=== PATIENT | female | born 1935 | race Caucasian/White ===

== ENCOUNTER → 2016-04-28 | Outpatient (CLI) | payer MEDICARE ==
--- NOTE | 2016-04-28 14:43 | US ---
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 Patient has stents bilaterally EXAM MEASUREMENTS: RIGHT: Peak Systolic Velocity (PSV) cm/sec ----- Right CCA: 93.0 ----- Right ICA: 164.7* ----- Right ECA: 419.4 ICA/CCA ratio: 1.8 RIGHT: End Diastole cm/sec ----- Right CCA: 19.3 ----- Right ICA: 27.6 ----- Right ECA: 72.3 LEFT: Peak Systolic Velocity (PSV) cm/sec ----- Left CCA: 79.6 ----- Left ICA: 111.8 ----- Left ECA: no flow detected ICA/CCA ratio: 1.4 LEFT: End Diastole cm/sec ----- Left CCA: 28.0 ----- Left ICA: 31.0 ----- Left ECA: no flow detected VERTEBRALS (direction of flow): Right Vertebral: Antegrade Left Vertebral: Antegrade IMPRESSION: Patient has bilateral stents in carotid arteries. Elevated velocities in right ICA and ECA. No flow detected left ECA. Criteria for Assigning % of Stenosis / Diameter reduction (Estimation based on the indirect measurements of the internal carotid artery velocities (ICA PSV). 1. Normal (no stenosis)=ICA PSV < 125 cm/s: ratio < 2.0: ICA EDV<40 cm/s. 2. Less than 50% stenosis=ICA PSV < 125 cm/s: ratio < 2.0: ICA EDV<40 cm/s. 3. 50 to 69% stenosis=ICA PSV of 125 to 230 cm/s: ration 2.0 ? 4.0: ICA EDV 40-100 cm/s. 4. Greater than 70% stenosis to near occlusion= ICA PSV > 230 cm/s: ratio > 4.0: ICA EDV > 100 cm/s. 5. Near occlusion= ICA PSV velocities may be low or undetectable: variable ratio and ICA EDV. 6. Total occlusion=unable to detect flow.
== END | disposition home or self-care (01) ==
LOC: RADUSWWP 14:00
PROVIDERS: ATTEND Family Medicine
DX: I65.23 Occlusion and stenosis of bilateral carotid arteries (principal); Z95.828 Presence of other vascular implants and grafts
CPT/HCPCS: 93880

== ENCOUNTER → 2016-06-14 | Outpatient (CLI) | payer MEDICARE ==
--- NOTE | 2016-06-14 12:34 | CT ---
EXAMINATION TYPE: CT sinus wo con DATE OF EXAM: 06/14/2016 12:27 PM COMPARISON: NONE HISTORY: Sinusitis CT DLP: 564.[address] of the paranasal sinuses was performed in the axial and coronal planes. Bone and soft tissue settings are submitted. The paranasal sinuses demonstrate normal aeration and development. Mild mucosal thickening of the ethmoid air cells, maxillary sinuses and sphenoid sinus. No air-fluid levels detected. The osteal meatal units are patent bilaterally. The nasal septum is mildly deviated right to left. No bony destructive changes are seen within the field of view. IMPRESSION: Changes of chronic sinusitis.
== END | disposition home or self-care (01) ==
LOC: RADCTMAIN 12:06
PROVIDERS: ATTEND Family Medicine
DX: J01.11 Acute recurrent frontal sinusitis (principal)
CPT/HCPCS: 70486

== ENCOUNTER → 2017-12-05 | Outpatient (CLI) | payer MEDICARE ==
--- NOTE | 2017-12-05 18:05 | US ---
EXAMINATION TYPE: US carotid duplex BILAT DATE OF EXAM: 12/05/2017 COMPARISON: NONE CLINICAL HISTORY: I65.2 Occlusion and stenosis of bilateral carotid. Stenosis and occlusion of left E CA has stents in. EXAM MEASUREMENTS: RIGHT: Peak Systolic Velocity (PSV) cm/sec ----- Right CCA: 90 ----- Right ICA: 208 ----- Right ECA: 423.8 ICA/CCA ratio: 2.3 RIGHT: End Diastole cm/sec ----- Right CCA: 21.7 ----- Right ICA: 30.4 ----- Right ECA: 66.8 LEFT: Peak Systolic Velocity (PSV) cm/sec ----- Left CCA: 101.6 ----- Left ICA: 129.9 ----- Left ECA: Occluded ICA/CCA ratio: 1.3 LEFT: End Diastole cm/sec ----- Left CCA: 30.5 ----- Left ICA: 36.9 ----- Left ECA: Occluded VERTEBRALS (direction of flow): Right Vertebral: Antegrade Left Vertebral: Antegrade Rhythm: Normal Elevated velocities bilaterally. Left ECA occluded. IMPRESSION: There is occlusion of the left external carotid artery. There is elevated velocities in the internal carotid arteries bilaterally that suggests approximately 70% stenosis. There is antegrad e flow in the vertebral arteries. Criteria for Assigning % of Stenosis / Diameter reduction (Estimation based on the indirect measurements of the internal carotid artery velocities (ICA PSV). 1. Normal (no stenosis)=ICA PSV < 125 cm/s: ratio < 2.0: ICA EDV<40 cm/s. 2. Less than 50% stenosis=ICA PSV < 125 cm/s: ratio < 2.0: ICA EDV<40 cm/s. 3. 50 to 69% stenosis=ICA PSV of 125 to 230 cm/s: ration 2.0 ? 4.0: ICA EDV 40-100 cm/s. 4. Greater than 70% stenosis to near occlusion= ICA PSV > 230 cm/s: ratio > 4.0: ICA EDV > 100 cm/s. 5. Near occlusion= ICA PSV velocities may be low or undetectable: variable ratio and ICA EDV. 6. Total occlusion=unable to detect flow.
--- NOTE | 2017-12-05 22:31 | CT ---
EXAMINATION TYPE: CT chest w con DATE OF EXAM: 12/05/2017 COMPARISON: Chest radiograph 09/06/2012 HISTORY: 82-year-old female Shortness of breath x3 months. TECHNIQUE: Contiguous axial scanning of the chest after the administration of 100ml mL of Isovue 370. Coronal/sagittal reconstructions performed. CT DLP: 346mGycm. Automatic exposure control utilized for a dose reduction. FINDINGS: A tracheostomy stoma is noted. Heart upper limits of normal in size without pericardial effusion. Coronary vessel calcifications are present in remarkable for coronary artery disease. Aorta normal caliber with moderate atherosclerotic arch calcifications and conventional arch vessel b ranching anatomy. Prominent but nonenlarged right paratracheal lymph nodes measure up to 8 mm. AP window lymph nodes are also prominent and suspicious measuring up to 1.1 cm. Additional adjacent 7 mm AP window lymph nodes. Subcarinal lymph node is enlarged and suspicious at 2.3 cm. Additional numerous calcified mediastinal and left hilar lymph nodes compatible with prior granulomat ous disease. Large heterogeneously enhancing posterior and medial left lower lobe mass centered primarily in the s uperior segment but also extending to the upper portion of the basilar segments. This measures at [address] [facility] 5.5 cm wide by 9.1 cm AP by 8.1 cm craniocaudal. Some opacity extending peripherally to the pleura l surface probably represents postobstructive changes and the superior segment left lower lobe bronch us and many of the proximal portion of the segmental bronchi course through this lesion. Septal thickening in the basilar left lower lobe. Calcified granuloma peripheral left midlung. Visualized upper abdomen shows calcified granulomas in the spleen and a 2.6 cm cyst upper pole left k [place]. Bones: Endplate spondylosis mid to lower thoracic spine. No osseous destructive process. IMPRESSION: 1. Large left infrahilar mass centered within the superior segment left lower lobe encasing the left lower lobar and segmental bronchi. It is estimated to measure up to 9.1 cm and causes postobstructive atelectasis or pneumonitis peripherally in the left lower lobe and some vascular congestion with sep teo thickening at the base. Consider PET/CT and endobronchial sampling. 2. A 2.3 cm subcarinal lymph node is suspicious for metastatic disease. 1.1 AP window and adjacent 7 mm AP window lymph nodes are equivocal but also somewhat suspicious. 3. Prior granulomatous disease.
== END | disposition home or self-care (01) ==
LOC: RADUSMAIN 16:53
PROVIDERS: ATTEND Family Medicine
DX: I65.23 Occlusion and stenosis of bilateral carotid arteries (principal); R91.8 Other nonspecific abnormal finding of lung field; R09.89 Other specified symptoms and signs involving the circulatory and respiratory systems
CPT/HCPCS: 82565; 84520; 93880; 71260; 36415; Q9967

== ENCOUNTER → 2017-12-22 | Outpatient (CLI) | payer MEDICARE ==
--- NOTE | 2017-12-24 21:48 | PE ---
EXAMINATION TYPE: PET CT fusion skull to thigh DATE OF EXAM: 12/22/2017 CLINICAL HISTORY: 82-year-old female initial staging left lung cancer. Patient with history of prior radiation therapy to the neck 28 years ago. TECHNIQUE: Following the intravenous administration of 13.0 mCi of F-18 FDG, whole body images are performed from the skull base to the midthigh. Images are reviewed on the computer in the coronal, a xial, and sagittal planes. Reconstructed rotating images are created on independent workstation and reviewed on the computer. A localization and attenuation correction CT is performed in conjunction with the PET scan. Glucose level: 89 mg/dL CTDI: 4.56 mGy DLP: 406.23 mGy-cm COMPARISON: CT chest 12/05/2017 FINDINGS: PET: Tiny 3 mm left supraclavicular lymph node shows trace uptake, max SUV 1.8. An 8 mm right supraclavicu lar lymph node shows borderline moderate uptake, max SUV 3.1. Small superior mediastinal lymph nodes measuring up to 6 mm also show borderline moderate FDG uptake, maximum SUV 3.1. Larger right paratracheal lymph node measures 9 mm, Prevascular space and AP window lymph nodes measure up to 7 mm. Right tracheobronchial angle lymph node measures 1.1 cm. Subcarinal lymph node measures 2.0 cm. Small lymph node along the apical esophageal recess measures 8 mm. These have variable moderate to in tense uptake, max SUV ranging from 3.8 -12.2 and are all suspicious. Redemonstrated large left infrahilar and superior segment left lower lobe hypermetabolic mass measuri ng up to 8.9 cm on axial series and extending to the posterior pleural margin and encasing left lower lobe bronchi. Max SUV 7.6. Some areas of focal opacity extending peripherally in the left lower lobe show only mild or moderate uptake and are suggestive of areas of pneumonitis. There is a lipoma involving the posterior right deltoid musculature measuring up to 4.5 cm. No internal corrosion specialist al soft tissue nodularity or hypermetabolism. Average liver SUV 1.9. Ametabolic 2.2 cm cyst upper pole left kidney. Physiologic FDG uptake within the abdomen and pelvis. ATTENUATION CORRECTION CT: Patient seems to have had prior neck dissection. Stents within the bilateral carotid arteries. Prior tracheostomy. Heart borderline enlarged with trace pericardial fluid. Coronary vessel calcifications are present in remarkable for coronary artery disease. Prior granulomatous disease with calcified mediastinal lymph nodes. Calcified pulmonary nodule left mid lung and in the right apex. Ectatic aorta at the thoracoa bdominal junction and 2.8 cm. The adrenal glands are clear. Calcified granulomas in the spleen. Ectatic infrarenal abdominal aorta 2.6 cm. No dilated small bowel, free fluid, or free air. Left hemicolonic diverticulosis, greatest in the ethmoid:. No pericolonic inflammatory change. Moderate circumferential bladder wall thickening. Status post hysterectomy. No abnormal fluid collect ion in the pelvis or pelvic lymphadenopathy. Bones: Ametabolic bone island left superior pubic ramus. Degenerative changes of the hips. Degenerati ve changes mid to lower lumbar spine and endplate spondylosis midthoracic spine. No osseous destructi ve process. IMPRESSION: 1. Large 9.0 cm hypermetabolic left infrahilar/superior segment left lower lobe neoplasm encasing lef t lower lobe bronchi and causing postobstructive pneumonitis similar to the 12/05/2017 CT. 2. Metastatic disease including AP window, subcarinal, azygoesophageal recess, right paratracheal, bear perior mediastinal, right supraclavicular (8 mm) and suspected early left supraclavicular (3 mm) hype rmetabolic lymphadenopathy.
== END | disposition home or self-care (01) ==
LOC: RADPETMAIN 12:16
PROVIDERS: ATTEND Internal Medicine Hematology & Oncology
DX: C34.32 Malignant neoplasm of lower lobe, left bronchus or lung (principal); J18.9 Pneumonia, unspecified organism
CPT/HCPCS: 78815; A9552

== ENCOUNTER 2017-12-28 07:46 | Day surgery (SDC) | payer MEDICARE ==
[2017-12-28] MEDS ORDERED: ALPRAZolam 0.25 MG TAB PO STA (08:49)
[2017-12-28 09:04] VITALS: TEMP 98.3
[2017-12-28 09:29] VITALS: RESP 18
[2017-12-28 10:08] VITALS: BP 154/76; PULSE 74
--- NOTE | 2017-12-28 13:05 | US ---
EXAMINATION TYPE: US biopsy lymph node, US fine needle aspiration DATE OF EXAM: 12/28/2017 HISTORY: Supraclavicular mass. FINDINGS: Maximal barrier technique was utilized. The skin overlying a suitable path to the patient' s mass was localized with ultrasound and the overlying skin prepped and draped. Ultrasound was utili zed with sterile technique. Lidocaine was used for local anesthesia. A skin fahad was made with a sc alpel. An 20-gauge needle was advanced under direct ultrasound guidance and core specimen obtained o f the mass. Specimen submitted to Pathology. Aspiration also performed with 25-gauge needle under u ltrasound guidance. Second 20-gauge core specimen was then obtained. Following the procedure, hemosta sis achieved and the patient is discharged in stable condition without complication. IMPRESSION:STATUS POST ULTRASOUND GUIDED CORE BIOPSY AND FINE-NEEDLE ASPIRATION OF right supraclavicu lar MASS, PATHOLOGY IS PENDING. THIS PROCEDURE IS PERFORMED BY THE UNDERSIGNED.
== END 2017-12-28 10:05 | disposition home or self-care (01) ==
LOC: RADPROMAIN 07:46
PROVIDERS: ATTEND Internal Medicine
DX: R59.1 Generalized enlarged lymph nodes (principal); C34.90 Malignant neoplasm of unspecified part of unspecified bronchus or lung
CPT/HCPCS: 10022; 38505; 76942; 88173; 88305; 88341; 88342

== ENCOUNTER 2018-03-31 12:47 | Inpatient (IN) | payer MEDICARE ==
[2018-03-31] MEDS ORDERED: methylPREDNISolone SOD SUCCI 125 MG/2 ML VIAL IV STA (13:01)
[2018-03-31] MEDS ORDERED: ALBUTEROL NEBULIZED 2.5 MG/3 ML INHALATION STA (13:01)
[2018-03-31] MEDS ORDERED: SODIUM CHLORIDE 0.9% 500 ML 500 ML IV STA (13:01)
[2018-03-31] MEDS ORDERED: IPRATROPIUM 0.5 MG/2.5 ML NEBU INHALATION STA (13:01)
--- NOTE | 2018-03-31 13:08 | ED ---
General Adult HPI - General Chief complaint: Chest Pain Stated complaint: SOB Time Seen by Provider: 03/31/18 12:50 Source: patient, RN notes reviewed Mode of arrival: EMS Limitations: physical limitation - History of Present Illness Initial comments: 82-year-old female history of laryngeal cancer remotely with stoma, history of COPD, history of recurrent lung cancer on chemotherapy presents for evaluation of dyspnea. Patient transported by EMS, noted hypoxia in the high 80s. Patient 's chief complaint is right-sided rib pain,history of fall but pain did not begin immediately after the fall. She has left-sided lung cancer currently under treatment. She does report subjective fever and chills. She does report increasing cough and dyspnea. No abdominal pain nausea vomiting. - Related Data Home Medications Medication Instructions Recorded Confirmed Bisoprol/Hydrochlorothiazide 1 tab PO DAILY 12/25/17 03/31/18 [Bisoprolol-Hctz 10-6.25 mg Tab] Lovastatin [Mevacor] 20 tab PO DAILY 12/25/17 03/31/18 Montelukast [Singulair] 10 mg PO DAILY 12/25/17 03/31/18 Omeprazole 20 mg PO DAILY 12/25/17 03/31/18 Albuterol Inhaler [Ventolin Hfa 1 - 2 puff INHALATION RT-Q6H PRN 03/31/18 Inhaler] Ascorbic Acid [Vitamin C] 1,000 mg PO DAILY 03/31/18 03/31/18 Calcium 2,000 mg PO DAILY 03/31/18 03/31/18 Cholecalciferol [Vitamin D3] 5,000 unit PO DAILY 03/31/18 03/31/18 Hfb Nasal [place] 1 spray DAILY 03/31/18 03/31/18 Melatonin 10 mg PO HS 03/31/18 03/31/18 Multivitamins, Thera [Multivitamin 1 tab PO DAILY 03/31/18 03/31/18 (formulary)] amLODIPine [Norvasc] 5 mg PO DAILY 03/31/18 03/31/18 Allergies Allergy/AdvReac Type Severity Reaction Status Date / Time penicillin G Allergy Rash/Hives Verified 03/31/18 13:12 Sulfa (Sulfonamide Allergy Rash/Hives Verified 03/31/18 13:12 Antibiotics) Review of Systems ROS Statement: Those systems with pertinent positive or pertinent negative responses have been documented in the HPI. ROS Other: All systems not noted in ROS Statement are negative. Past Medical History Past Medical History: Cancer, Hypertension, Vascular Disorder Additional Past Medical History / Comment(s): total -laryngectomy approx 1989. neck stoma History of Any Multi-Drug Resistant Organisms: None Reported Past Surgical History: Hysterectomy Additional Past Surgical History / Comment(s): total -laryngectomy approx 1989. carotid stents bilaterally Past Anesthesia/Blood Transfusion Reactions: No Reported Reaction Past Psychological History: No Psychological Hx Reported Smoking Status: Former smoker Past Alcohol Use History: None Reported Past Drug Use History: None Reported General Exam Limitations: physical limitation General appearance: alert, in no apparent distress Head exam: Present: atraumatic, normocephalic Eye exam: Present: normal appearance, PERRL, EOMI ENT exam: Present: other (tracheal stoma) Neck exam: Present: normal inspection. Absent: tenderness, meningismus Respiratory exam: Present: respiratory distress, wheezes, rhonchi, chest wall tenderness (rt lower) Cardiovascular Exam: Present: normal rhythm, tachycardia GI/Abdominal exam: Present: soft. Absent: distended, tenderness, guarding Extremities exam: Present: normal capillary refill. Absent: pedal edema, calf tenderness Neurological exam: Present: alert, oriented X3, CN II-XII intact. Absent: motor sensory deficit Psychiatric exam: Present: normal affect, normal mood Skin exam: Present: warm, dry, intact. Absent: cyanosis, diaphoretic Course Vital Signs 03/31/18 03/31/18 03/31/18 12:55 14:11 14:18 Temperature 100.1 F H 100.8 F H Pulse Rate 106 H 105 H Respiratory 22 26 H Rate Blood Pressure 146/67 136/77 O2 Sat by Pulse 94 L 90 L 93 L Oximetry 03/31/18 15:59 Temperature 100.4 F H Pulse Rate 98 Respiratory 25 H Rate Blood Pressure 136/77 O2 Sat by Pulse 92 L Oximetry EKG Findings - EKG Comments: EKG Findings:: EKG: Sinus tachycardia with PVC, rate of 114, CA interval 136, castration 80, QTC 419, no ST segment elevation, poor baseline secondary to artifact Medical Decision Making - Medical Decision Making 82-year-old female presenting with fever, cough, dyspnea, patient has history of COPD and recurrent lung cancer. She does complain of some pleuritic right- sided chest pain. Workup was initiated emergency department. Chest x-ray shows bilateral basilar pneumonia. She has a normal white blood cell count, stable hemoglobin, normal x-rays, troponin and BNP are negative. D-dimer significantly elevated at 28. She started on antibiotics for pneumonia, awaiting CT results. CT is obtained in the emergency department which is significant for PE with saddle embolism. She is a initiated on heparin. VS remain stable with some hypoxia without supplemental oxygen. Heart rate and blood pressure stable. Case is discussed with Dr. Valle, pulmonary owner , patient will be admitted to ICU, no need for transfer at this time, This is a large embolus, there is no signs of heart strain, negative troponin. CT reviewed with the radiologist, no signs of right heart strain, normal right ventricle, and intraventricular septum. Case discussed with the medic physician. Patient with multifactorial dyspnea, large saddle pulmonary embolism. Patient will be admitted to the ICU on heparin, started on antibiotics as well as steroids and bronchodilators. - Lab Data Result diagrams: 03/31/18 14:00 03/31/18 14:00 Lab Results 03/31/18 03/31/18 03/31/18 Range/Units 14:00 14:00 14:00 WBC 9.2 (3.8-10.6) k/uL RBC 4.33 (3.80-5.40) m/uL Hgb 12.0 (11.4-16.0) gm/dL Hct 37.4 (34.0-46.0) % MCV 86.5 (80.0-100.0) fL MCH 27.7 (25.0-35.0) pg MCHC 32.0 (31.0-37.0) g/dL RDW 19.1 H (11.5-15.5) % Plt Count 215 (150-450) k/uL Neutrophils % 81 % Lymphocytes % 13 % Monocytes % 5 % Eosinophils % 1 % Basophils % 0 % Neutrophils # 7.4 (1.3-7.7) k/uL Lymphocytes # 1.1 (1.0-4.8) k/uL Monocytes # 0.5 (0-1.0) k/uL Eosinophils # 0.1 (0-0.7) k/uL Basophils # 0.0 (0-0.2) k/uL Hypochromasia Slight Anisocytosis Slight PT (9.0-12.0) sec INR (<1.2) APTT (22.0-30.0) sec D-Dimer (<0.60) mg/L FEU Sodium 136 L (137-145) mmol/L Potassium 3.8 (3.5-5.1) mmol/L Chloride 98 (98-107) mmol/L Carbon Dioxide 32 H (22-30) mmol/L Anion Gap 6 mmol/L BUN 18 H (7-17) mg/dL Creatinine 0.69 (0.52-1.04) mg/dL Est GFR (CKD-EPI)AfAm >90 (>60 ml/min/1.73 sqM) Est GFR (CKD-EPI)NonAf 82 (>60 ml/min/1.73 sqM) Glucose 166 H (74-99) mg/dL Plasma Lactic Acid Nick (0.7-2.0) mmol/L Calcium 9.2 (8.4-10.2) mg/dL Magnesium 1.5 L (1.6-2.3) mg/dL Total Bilirubin 0.5 (0.2-1.3) mg/dL AST 21 (14-36) U/L ALT 34 (9-52) U/L Alkaline Phosphatase 94 (38-126) U/L Total Creatine Kinase <20 L (30-135) U/L CK-MB (CK-2) <0.2 (0.0-2.4) ng/mL CK-MB (CK-2) Rel Index Troponin I <0.012 (0.000-0.034) ng/mL NT-Pro-B Natriuret Pep pg/mL Total Protein 5.9 L (6.3-8.2) g/dL Albumin 3.1 L (3.5-5.0) g/dL Influenza Type A RNA (Not Detectd) Influenza Type B (PCR) (Not Detectd) 03/31/18 03/31/18 03/31/18 Range/Units 14:00 14:00 14:00 WBC (3.8-10.6) k/uL RBC (3.80-5.40) m/uL Hgb (11.4-16.0) gm/dL Hct (34.0-46.0) % MCV (80.0-100.0) fL MCH (25.0-35.0) pg MCHC (31.0-37.0) g/dL RDW (11.5-15.5) % Plt Count (150-450) k/uL Neutrophils % % Lymphocytes % % Monocytes % % Eosinophils % % Basophils % % Neutrophils # (1.3-7.7) k/uL Lymphocytes # (1.0-4.8) k/uL Monocytes # (0-1.0) k/uL Eosinophils # (0-0.7) k/uL Basophils # (0-0.2) k/uL Hypochromasia Anisocytosis PT 10.7 (9.0-12.0) sec INR 1.0 (<1.2) APTT 20.9 L (22.0-30.0) sec D-Dimer 28.98 H (<0.60) mg/L FEU Sodium (137-145) mmol/L Potassium (3.5-5.1) mmol/L Chloride (98-107) mmol/L Carbon Dioxide (22-30) mmol/L Anion Gap mmol/L BUN (7-17) mg/dL Creatinine (0.52-1.04) mg/dL Est GFR (CKD-EPI)AfAm (>60 ml/min/1.73 sqM) Est GFR (CKD-EPI)NonAf (>60 ml/min/1.73 sqM) Glucose (74-99) mg/dL Plasma Lactic Acid Nick (0.7-2.0) mmol/L Calcium (8.4-10.2) mg/dL Magnesium (1.6-2.3) mg/dL Total Bilirubin (0.2-1.3) mg/dL AST (14-36) U/L ALT (9-52) U/L Alkaline Phosphatase (38-126) U/L Total Creatine Kinase (30-135) U/L CK-MB (CK-2) (0.0-2.4) ng/mL CK-MB (CK-2) Rel Index Troponin I (0.000-0.034) ng/mL NT-Pro-B Natriuret Pep 318 pg/mL Total Protein (6.3-8.2) g/dL Albumin (3.5-5.0) g/dL Influenza Type A RNA Not Detected (Not Detectd) Influenza Type B (PCR) Not Detected (Not Detectd) 03/31/18 Range/Units 14:00 WBC (3.8-10.6) k/uL RBC (3.80-5.40) m/uL Hgb (11.4-16.0) gm/dL Hct (34.0-46.0) % MCV (80.0-100.0) fL MCH (25.0-35.0) pg MCHC (31.0-37.0) g/dL RDW (11.5-15.5) % Plt Count (150-450) k/uL Neutrophils % % Lymphocytes % % Monocytes % % Eosinophils % % Basophils % % Neutrophils # (1.3-7.7) k/uL Lymphocytes # (1.0-4.8) k/uL Monocytes # (0-1.0) k/uL Eosinophils # (0-0.7) k/uL Basophils # (0-0.2) k/uL Hypochromasia Anisocytosis PT (9.0-12.0) sec INR (<1.2) APTT (22.0-30.0) sec D-Dimer (<0.60) mg/L FEU Sodium (137-145) mmol/L Potassium (3.5-5.1) mmol/L Chloride (98-107) mmol/L Carbon Dioxide (22-30) mmol/L Anion Gap mmol/L BUN (7-17) mg/dL Creatinine (0.52-1.04) mg/dL Est GFR (CKD-EPI)AfAm (>60 ml/min/1.73 sqM) Est GFR (CKD-EPI)NonAf (>60 ml/min/1.73 sqM) Glucose (74-99) mg/dL Plasma Lactic Acid Nick 1.9 (0.7-2.0) mmol/L Calcium (8.4-10.2) mg/dL Magnesium (1.6-2.3) mg/dL Total Bilirubin (0.2-1.3) mg/dL AST (14-36) U/L ALT (9-52) U/L Alkaline Phosphatase (38-126) U/L Total Creatine Kinase (30-135) U/L CK-MB (CK-2) (0.0-2.4) ng/mL CK-MB (CK-2) Rel Index Troponin I (0.000-0.034) ng/mL NT-Pro-B Natriuret Pep pg/mL Total Protein (6.3-8.2) g/dL Albumin (3.5-5.0) g/dL Influenza Type A RNA (Not Detectd) Influenza Type B (PCR) (Not Detectd) Critical Care Time Critical Care Time: Yes Total Critical Care Time: 35 Disposition Clinical Impression: Saddle embolus of pulmonary artery, COPD (chronic obstructive pulmonary disease ), Pneumonia Disposition: ADMITTED IP TO THIS [facility] Condition: Serious Is patient prescribed a controlled substance at d/c from ED?: No Referrals: Kamari Bailey MD [Primary Care Provider] - 1-2 days Decision to Admit Reason: Admit from EC Decision Date: 03/31/18 Decision Time: 17:17
[2018-03-31] MEDS ORDERED: ACETAMINOPHEN TAB 500 MG TAB PO STA (14:18)
[2018-03-31 14:40] LABS: Anisocytosis Slight; Basophils % (A) 0 %; Eosinophils # (A) 0.1 k/uL (0-0.7); Eosinophils % (A) 1 %; HCT 37.4 % (34.0-46.0); Hypochromasia Slight; Lymphocytes # (A) 1.1 k/uL (1.0-4.8); Lymphocytes % (A) 13 %; MCH 27.7 pg (25.0-35.0); MCV 86.5 fL (80.0-100.0); Monocytes # (A) 0.5 k/uL (0-1.0); Monocytes % (A) 5 %; Neutrophils # (A) 7.4 k/uL (1.3-7.7); Neutrophils % (A) 81 %; Platelet Count 215 k/uL (150-450); RBC 4.33 m/uL (3.80-5.40); RDW 19.1 % (11.5-15.5); WBC 9.2 k/uL (3.8-10.6)
[2018-03-31 14:50] LABS: ALT 34 U/L (9-52); AST 21 U/L (14-36); Albumin 3.1 g/dL (3.5-5.0); Alkaline Phosphatase 94 U/L (38-126); Anion Gap 6 mmol/L; Blood Urea Nitrogen 18 mg/dL (7-17); Calcium 9.2 mg/dL (8.4-10.2); Carbon Dioxide 32 mmol/L (22-30); Chloride 98 mmol/L (98-107); Glucose 166 mg/dL (74-99); Magnesium 1.5 mg/dL (1.6-2.3); Potassium 3.8 mmol/L (3.5-5.1); Sodium 136 mmol/L (137-145); Total Bilirubin 0.5 mg/dL (0.2-1.3); Total Protein 5.9 g/dL (6.3-8.2)
[2018-03-31 14:57] LABS: Creatine Kinase <20 U/L (30-135)
[2018-03-31] MEDS ORDERED: MAGNESIUM SULFATE-D5W PMX 1 GM in DEXTROSE/WATER 1 100ML.BAG IVPB ONE (14:57)
[2018-03-31 15:05] LABS: Prothrombin Time 10.7 sec (9.0-12.0)
--- NOTE | 2018-03-31 15:07 | XR ---
EXAMINATION TYPE: XR chest 1V portable DATE OF EXAM: 03/31/2018 COMPARISON: 09/06/2012 HISTORY: Difficulty breathing TECHNIQUE: Single frontal view of the chest is obtained. FINDINGS: Heart is enlarged. There is no gross heart failure. There are patchy infiltrates in the lo wer lung suarez and more on the left side. There are chest leads. Thoracic aorta is atheromatous. Bon y thorax appears intact. IMPRESSION: Cardiomegaly. New basilar pulmonary infiltrates compared to old exam and consistent with pneumonia.
[2018-03-31 15:11] LABS: Creatine Kinase MB <0.2 ng/mL (0.0-2.4); Troponin I <0.012 ng/mL (0.000-0.034)
[2018-03-31 15:17] LABS: D-Dimer 28.98 mg/L FEU (<0.60); Partial Thromboplastin Time 20.9 sec (22.0-30.0)
[2018-03-31] MEDS ORDERED: LEVOFLOXACIN 750MG-D5W PMX 750 MG in DEXTROSE/WATER 1 150ML.BAG IVPB STA (15:22)
[2018-03-31] MEDS ORDERED: HEPARIN SODIUM,PORCINE 10,000 UNIT/ML 1 ML VIAL IV ONE (16:51)
[2018-03-31] MEDS ORDERED: HEPARIN SODIUM,PORCINE 5,000 UNIT/ML 1 ML VIAL IV PRN (16:51)
--- NOTE | 2018-03-31 16:54 | CT ---
EXAMINATION TYPE: CT angio chest DATE OF EXAM: 03/31/2018 4:42 PM COMPARISON: None HISTORY: Right side chest pain CT DLP: 223.4 mGycm Automated exposure control for dose reduction was used. CONTRAST: CTA scan of the thorax is performed with IV Contrast, patient injected with 100 mL of Isovue 370, pul monary embolism protocol. There are 3-D post processed images.. FINDINGS: There is large area of dense pneumonic consolidation in the left lower lobe involving the entire left lower lobe. There is atelectasis and consolidation at the right posterior lung base. There are multiple linear filling defects within the left and right pulmonary artery. This is a saddl e embolism. There is embolism extending into branches of the right lower lobe pulmonary artery. There is embolism extending into the left upper lobe pulmonary artery. There is embolism extending also in to the right middle lobe pulmonary artery. There are calcified granulomata. In the mediastinum. Thoracic aorta is atheromatous. There is no evid ence of aneurysm or dissection. The bony thorax is intact. There is degenerative spurring in the thor acic spine. IMPRESSION: THERE IS EXTENSIVE PULMONARY EMBOLISM INVOLVING LEFT UPPER LOBE RIGHT MIDDLE LOBE AND RIGHT LOWER LOB E PULMONARY ARTERIES. THERE IS LARGE AREA OF AIRSPACE CONSOLIDATION LEFT LOWER LOBE. SMALL INFILTRATE RIGHT POSTERIOR LUNG BASE. OLD GRANULOMATOUS DISEASE. THIS EXAM WAS DISCUSSED WITH ER PHYSICIAN AT 4:50 PM.
[2018-03-31] MEDS: HEPARIN SOD,PORK IN 0.45% NACL 25,000 UNIT in 0.45% NACL 1 250ML.BAG IV SCH (17:01)
[2018-03-31] MEDS ORDERED: IPRATROPIUM-ALBUTEROL 3 ML NEB INHALATION PRN (17:11)
[2018-03-31] MEDS ORDERED: NALOXONE 0.4 MG/ML 1 ML VIAL IV PRN (17:11)
[2018-03-31] MEDS: ACETAMINOPHEN TAB 325 MG TAB PO PRN (18:12)
[2018-03-31] MEDS: IPRATROPIUM-ALBUTEROL 3 ML NEB INHALATION SCH (18:30)
[2018-03-31 21:14] VITALS: BMI 24.3
[2018-03-31] MEDS ORDERED: ALBUTEROL NEBULIZED 2.5 MG/3 ML INHALATION PRN (22:05)
[2018-03-31 22:13] LABS: Appearance,Urine Clear (Clear); Bilirubin,Urine Negative (Negative); Blood,Urine Negative (Negative); Color,Urine Yellow; Glucose,Urine (UA) Trace (Negative); Ketones,Urine Negative (Negative); Leukocyte Esterase,Urine Negative (Negative); Nitrite,Urine Negative (Negative); PH, Urine 6.5 (5.0-8.0); Protein,Urine Trace (Negative); Urobilinogen,Urine <2.0 mg/dL (<2.0)
[2018-03-31 22:29] LABS: Specific Gravity,Urine 1.046 (1.001-1.035)
[2018-03-31] MEDS: MELATONIN 5 MG TABLET PO SCH (23:02)
[2018-03-31] MEDS: SODIUM CHLORIDE 0.9% 1,000 ML IV SCH (23:03)
[2018-03-31] MEDS: methylPREDNISolone SOD SUCCI 125 MG/2 ML VIAL IV SCH (23:06)
[2018-04-01] MEDS: ACETAMINOPHEN TAB 325 MG TAB PO PRN ×2 (00:59→05:26)
[2018-04-01 06:19] LABS: Glucose,Whole Blood 148 mg/dL (75-99)
[2018-04-01] MEDS: INSULIN ASPART 100 UNIT/ML 1 ML 10 ML VIAL SQ SCH ×4 (07:01→20:46)
[2018-04-01 07:19] LABS: Anisocytosis Slight; Basophils % (A) 0 %; Eosinophils # (A) 0.1 k/uL (0-0.7); Eosinophils % (A) 1 %; HCT 35.5 % (34.0-46.0); Hypochromasia Slight; Lymphocytes # (A) 0.3 k/uL (1.0-4.8); Lymphocytes % (A) 4 %; MCV 87.2 fL (80.0-100.0); Mean Platelet Volume 6.9; Monocytes # (A) 0.2 k/uL (0-1.0); Monocytes % (A) 3 %; Neutrophils # (A) 7.1 k/uL (1.3-7.7); Neutrophils % (A) 92 %; Platelet Count 225 k/uL (150-450); RBC 4.07 m/uL (3.80-5.40); RDW 19.3 % (11.5-15.5); WBC 7.7 k/uL (3.8-10.6)
[2018-04-01 07:35] LABS: ALT 30 U/L (9-52); AST 21 U/L (14-36); Albumin 2.8 g/dL (3.5-5.0); Alkaline Phosphatase 77 U/L (38-126); Anion Gap 6 mmol/L; Blood Urea Nitrogen 12 mg/dL (7-17); Calcium 8.9 mg/dL (8.4-10.2); Carbon Dioxide 26 mmol/L (22-30); Chloride 105 mmol/L (98-107); Glucose 147 mg/dL (74-99); Magnesium 1.8 mg/dL (1.6-2.3); Potassium 3.7 mmol/L (3.5-5.1); Sodium 137 mmol/L (137-145); Total Bilirubin 0.5 mg/dL (0.2-1.3); Total Protein 5.7 g/dL (6.3-8.2)
[2018-04-01] MEDS: IPRATROPIUM-ALBUTEROL 3 ML NEB INHALATION SCH ×4 (08:37→19:25)
[2018-04-01] MEDS ORDERED: NON-FORMULARY DRUG (Ascorbic Acid [Vitamin C] 1,000 MG) PO SCH (09:00)
[2018-04-01] MEDS: methylPREDNISolone SOD SUCCI 125 MG/2 ML VIAL IV SCH ×3 (09:41→23:54)
[2018-04-01] MEDS: ATORVASTATIN 10 MG TAB PO SCH (09:41)
[2018-04-01] MEDS: BISOPROLOL-HCTZ 10-6.25 MG 1 EACH TAB PO SCH (09:41)
[2018-04-01] MEDS: amLODIPine 5 MG TAB PO SCH (09:41)
[2018-04-01] MEDS: PANTOPRAZOLE 40 MG TABLET PO SCH (09:42)
[2018-04-01] MEDS: CALCIUM CARBONATE 500 MG CHEWABLE PO SCH (09:42)
[2018-04-01] MEDS: CHOLECALCIFEROL 1,000 UNIT TAB PO SCH (09:42)
[2018-04-01] MEDS: MULTIVITAMINS, THERA 1 EACH TAB PO SCH (09:42)
[2018-04-01] MEDS: MONTELUKAST 10 MG TAB PO SCH (09:42)
--- NOTE | 2018-04-01 10:33 | P.HPIM ---
<Vita Muller A - Last Filed: 04/01/18 10:16> History of Present Illness H&P Date: 04/01/18 Chief Complaint: shortness of breath 82-year-old female with a past medical history significant for laryngeal cancer status post laryngectomy and lung cancer currently undergoing salvage chemotherapy, who presented to the emergency room with a chief complaint of dyspnea. chest x-ray revealed cardiomegaly and new basilar pulmonary infiltrates compared to old examined consistent with pneumonia. CT of the chest was performed revealing a extensive pulmonary embolism involving the left upper lobe right middle lobe and right lower lobe pulmonary arteries. Large area of airspace consolidation left lower lobe. Small infiltrate right posterior lung base. Laboratory data upon admission revealed white count 9.2. Hemoglobin 12.0. Platelet count 215. Sodium 136. Potassium 3.9. BUN 18. Creatinine 0.69. Glucose 166. Magnesium 1.5. troponin negative 1. BNP 318. d -dimer 28.98. testing for influenza A and B was negative. the patient was started on antibiotics and IV heparin and admitted to the hospital under the care of Dr. Muller. Consultations were placed to pulmonary and oncology. REVIEW OF SYSTEMS: Those systems with pertinent positive or pertinent negative responses have been documented in the HPI PHYSICAL EXAM: GENERAL: This is a 82-year-old female in no apparent distress at the time of examination. Pleasant and cooperative. HEENT: Head is atraumatic, normocephalic. Pupils are equal, round, and reactive to light. Sclerae anicteric. Conjunctivae are clear. Mucus membranes of the mouth are moist. Stoma present with humidified oxygen via trach collar. RESPIRATORY: Diminished. Coarse with rhonchi bilaterally. No use of accessory muscles. Patient maintaining oxygen saturation greater than 92%. No chest wall tenderness is noted on palpation or with deep breathing. CARDIOVASCULAR: Regular rate and rhythm. S1 and S2 noted. No JVD noted. No S3 or S4 noted. GASTROINTESTINAL: No distention noted. Abdomen soft and round. Normal active bowel sounds auscultated x 4 quadrants. No pain or tenderness noted upon palpation. INTEGUMENTARY: No cyanosis. No jaundice. No rashes noted. No cellulitis noted. EXTREMITIES: 2+ peripheral pulses. No evidence of peripheral edema. No calf tenderness noted. NEUROLOGIC: Cranial nerves II-XII grossly intact. PSYCHIATRIC: Awake, alert, and oriented X 3. Appropriate affect. Intact judgement and insight. ASSESSMENT: Bilateral lobe pneumonia, present on admission Acute pulmonary embolus involving left upper lobe, right middle lobe and right lower lobe pulmonary arteries History of laryngeal cancer with laryngectomy History of lung cancer, currently undergoing salvage chemotherapy Hypokalemia Hypomagnesemia PLAN: Pulmonary on consult. Appreciate recommendations and input Consult oncology Continue IV heparin for 24-48 hours. Will then transition to Eliquis or Xarelto. Spoke with case management, Clarice, who will find out patients insurance coverage for Eliquis or Xarelto Continue antibiotics Replace potassium and magnesium Home meds as appropriate Monitor labs GI prophylaxis: Protonix 40 mg PO Daily DVT prophylaxis: IV heparin Monitor vital signs and address as appropriate Discharge planning: Patient to return home when stable Further recommendations pending patient's course Nurse practitioner note has been reviewed by physician. Signing provider agrees with the documented findings, assessment, and plan of care. Past Medical History Past Medical History: Cancer, Hypertension, Vascular Disorder Additional Past Medical History / Comment(s): total -laryngectomy approx 1989. neck stoma; lung CA (01/2018) History of Any Multi-Drug Resistant Organisms: None Reported Past Surgical History: Hysterectomy Additional Past Surgical History / Comment(s): total -laryngectomy approx 1989. carotid stents bilaterally Past Anesthesia/Blood Transfusion Reactions: No Reported Reaction Past Psychological History: No Psychological Hx Reported Smoking Status: Former smoker Past Alcohol Use History: None Reported Past Drug Use History: None Reported - Past Family History Father Family Medical History: Myocardial Infarction ([place]) Mother Family Medical History: Diabetes Mellitus Additional Family Medical History / Comment(s): macular degeneration Medications and Allergies Home Medications Medication Instructions Recorded Confirmed Type Bisoprol/Hydrochlorothiazide 1 tab PO DAILY 12/25/17 03/31/18 History [Bisoprolol-Hctz 10-6.25 mg Tab] Lovastatin [Mevacor] 20 tab PO DAILY 12/25/17 03/31/18 History Montelukast [Singulair] 10 mg PO DAILY 12/25/17 03/31/18 History Omeprazole 20 mg PO DAILY 12/25/17 03/31/18 History Albuterol Inhaler [Ventolin Hfa 1 - 2 puff INHALATION RT-Q6H PRN 03/31/18 History Inhaler] Ascorbic Acid [Vitamin C] 1,000 mg PO DAILY 03/31/18 03/31/18 History Calcium 2,000 mg PO DAILY 03/31/18 03/31/18 History Cholecalciferol [Vitamin D3] 5,000 unit PO DAILY 03/31/18 03/31/18 History Hfb Nasal [place] 1 spray DAILY 03/31/18 03/31/18 History Melatonin 10 mg PO HS 03/31/18 03/31/18 History Multivitamins, Thera [Multivitamin 1 tab PO DAILY 03/31/18 03/31/18 History (formulary)] amLODIPine [Norvasc] 5 mg PO DAILY 03/31/18 03/31/18 History Allergies Allergy/AdvReac Type Severity Reaction Status Date / Time penicillin G Allergy Rash/Hives Verified 03/31/18 13:12 Sulfa (Sulfonamide Allergy Rash/Hives Verified 03/31/18 13:12 Antibiotics) Physical Exam Vitals: Vital Signs Temp Pulse Pulse Resp BP BP Pulse Ox 04/01/18 08:48 92 04/01/18 08:37 88 04/01/18 03:44 85 19 04/01/18 03:36 97.2 F L 85 19 160/78 90 L 04/01/18 01:09 94 L 04/01/18 01:07 88 L 03/31/18 23:51 89 18 03/31/18 23:41 98 F 89 18 162/68 93 L 03/31/18 21:00 94 19 03/31/18 20:20 92 L 03/31/18 20:15 98.4 F 94 19 145/64 93 L 03/31/18 19:30 99.1 F 03/31/18 19:00 99 22 115/66 89 L 03/31/18 18:42 94 03/31/18 18:33 93 88 L 03/31/18 17:54 98.2 F 88 25 H 115/66 90 L 03/31/18 17:00 91 23 136/77 92 L 03/31/18 15:59 100.4 F H 98 25 H 136/77 92 L 03/31/18 14:18 93 L 03/31/18 14:11 100.8 F H 105 H 26 H 136/77 90 L 03/31/18 12:55 100.1 F H 106 H 22 146/67 94 L Intake and Output 03/31/18 04/01/18 04/01/18 22:59 06:59 14:59 Intake Total 400 707.108 329.59 Balance 400 707.108 329.59 Intake: Intake, IV Titration 307.108 89.59 Amount Heparin Sod,Pork in 0.45% 87.108 89.59 NaCl 25,000 unit In 0.45 % NaCl 1 250ml.bag @ 18 UNITS/KG/HR 12.24 mls/hr IV .[id number] [facility] Rx#: [id number] Sodium Chloride 0.9% 1, 220 000 ml @ 20 mls/hr IV . Q24H [facility] Rx#:[id number] Oral 400 400 240 Other: Voiding Method Bedpan Bedpan # Voids 300 600 Weight 66.5 kg 68 kg Results CBC & Chem 7: 04/01/18 06:26 04/01/18 06:26 Labs: Abnormal Lab Results - Last 24 Hours (Table) 03/31/18 03/31/18 03/31/18 Range/Units 14:00 14:00 14:00 Hgb (11.4-16.0) gm/dL RDW 19.1 H (11.5-15.5) % Lymphocytes # (1.0-4.8) k/uL APTT (22.0-30.0) sec D-Dimer (<0.60) mg/L FEU Sodium 136 L (137-145) mmol/L Carbon Dioxide 32 H (22-30) mmol/L BUN 18 H (7-17) mg/dL Creatinine (0.52-1.04) mg/dL Glucose 166 H (74-99) mg/dL POC Glucose (mg/dL) (75-99) mg/dL Magnesium 1.5 L (1.6-2.3) mg/dL Total Creatine Kinase <20 L (30-135) U/L Total Protein 5.9 L (6.3-8.2) g/dL Albumin 3.1 L (3.5-5.0) g/dL Ur Specific [place] (1.001-1.035) Urine Protein (Negative) Urine Glucose (UA) (Negative) 03/31/18 03/31/18 03/31/18 Range/Units 14:00 21:40 23:10 Hgb (11.4-16.0) gm/dL RDW (11.5-15.5) % Lymphocytes # (1.0-4.8) k/uL APTT 20.9 L >200.0 H* (22.0-30.0) sec D-Dimer 28.98 H (<0.60) mg/L FEU Sodium (137-145) mmol/L Carbon Dioxide (22-30) mmol/L BUN (7-17) mg/dL Creatinine (0.52-1.04) mg/dL Glucose (74-99) mg/dL POC Glucose (mg/dL) (75-99) mg/dL Magnesium (1.6-2.3) mg/dL Total Creatine Kinase (30-135) U/L Total Protein (6.3-8.2) g/dL Albumin (3.5-5.0) g/dL Ur Specific [place] 1.046 H (1.001-1.035) Urine Protein Trace H (Negative) Urine Glucose (UA) Trace H (Negative) 04/01/18 04/01/18 04/01/18 Range/Units 06:16 06:26 06:26 Hgb 11.0 L (11.4-16.0) gm/dL RDW 19.3 H (11.5-15.5) % Lymphocytes # 0.3 L (1.0-4.8) k/uL APTT 92.9 H (22.0-30.0) sec D-Dimer (<0.60) mg/L FEU Sodium (137-145) mmol/L Carbon Dioxide (22-30) mmol/L BUN (7-17) mg/dL Creatinine (0.52-1.04) mg/dL Glucose (74-99) mg/dL POC Glucose (mg/dL) 148 H (75-99) mg/dL Magnesium (1.6-2.3) mg/dL Total Creatine Kinase (30-135) U/L Total Protein (6.3-8.2) g/dL Albumin (3.5-5.0) g/dL Ur Specific [place] (1.001-1.035) Urine Protein (Negative) Urine Glucose (UA) (Negative) 04/01/18 Range/Units 06:26 Hgb (11.4-16.0) gm/dL RDW (11.5-15.5) % Lymphocytes # (1.0-4.8) k/uL APTT (22.0-30.0) sec D-Dimer (<0.60) mg/L FEU Sodium (137-145) mmol/L Carbon Dioxide (22-30) mmol/L BUN (7-17) mg/dL Creatinine 0.45 L (0.52-1.04) mg/dL Glucose 147 H (74-99) mg/dL POC Glucose (mg/dL) (75-99) mg/dL Magnesium (1.6-2.3) mg/dL Total Creatine Kinase (30-135) U/L Total Protein 5.7 L (6.3-8.2) g/dL Albumin 2.8 L (3.5-5.0) g/dL Ur Specific [place] (1.001-1.035) Urine Protein (Negative) Urine Glucose (UA) (Negative) Thrombosis Risk Factor Assmnt - Choose All That Apply Each Risk Factor Represents 3 Points: Age 75 years or older Thrombosis Risk Factor Assessment Total Risk Factor Score: 3 Thrombosis Risk Factor Assessment Level: Moderate Risk <Jean Claude Muller Jr - Last Filed: 04/02/18 10:46> Physical Exam Osteopathic Statement: *. No significant issues noted on an osteopathic structural exam other than those noted in the History and Physical/Consult. Vitals: Vital Signs Temp Pulse Pulse Resp BP Pulse Ox 04/02/18 08:41 96 04/02/18 08:26 88 04/02/18 08:00 98.2 F 75 18 154/81 98 04/02/18 04:00 97.8 F 68 20 109/58 96 04/02/18 00:00 97.8 F 67 18 109/66 95 04/01/18 20:00 78 18 125/78 95 04/01/18 19:34 96 04/01/18 19:26 92 L 04/01/18 19:24 92 04/01/18 16:01 95 04/01/18 16:00 96.6 F L 91 18 140/73 93 L 04/01/18 15:51 94 04/01/18 13:10 92 04/01/18 12:50 96 04/01/18 12:00 97.7 F 84 18 132/75 91 L Intake and Output 04/01/18 04/02/18 04/02/18 22:59 06:59 14:59 Intake Total 72.93 240 Output Total 400 400 300 Balance -327.07 -400 -60 Intake: Intake, IV Titration 72.93 Amount Heparin Sod,Pork in 0.45% 72.93 NaCl 25,000 unit In 0.45 % NaCl 1 250ml.bag @ 18 UNITS/KG/HR 12.24 mls/hr IV .[id number] [facility] Rx#: [id number] Oral 240 Output: Urine 400 400 300 Other: Voiding Method Bedpan Bedpan Weight 68.1 kg Results CBC & Chem 7: 04/02/18 06:44 04/01/18 06:26 Labs: Abnormal Lab Results - Last 24 Hours (Table) 04/01/18 04/01/18 04/01/18 Range/Units 11:05 16:25 16:26 Hgb (11.4-16.0) gm/dL RDW (11.5-15.5) % Lymphocytes # (1.0-4.8) k/uL APTT 44.5 H (22.0-30.0) sec POC Glucose (mg/dL) 143 H 157 H (75-99) mg/dL 04/01/18 04/02/18 04/02/18 Range/Units 20:34 01:17 05:55 Hgb (11.4-16.0) gm/dL RDW (11.5-15.5) % Lymphocytes # (1.0-4.8) k/uL APTT 55.4 H (22.0-30.0) sec POC Glucose (mg/dL) 128 H 132 H (75-99) mg/dL 04/02/18 04/02/18 Range/Units 06:44 06:44 Hgb 10.9 L (11.4-16.0) gm/dL RDW 19.4 H (11.5-15.5) % Lymphocytes # 0.3 L (1.0-4.8) k/uL APTT 59.9 H (22.0-30.0) sec POC Glucose (mg/dL) (75-99) mg/dL Microbiology - Last 24 Hours (Table) 04/01/18 13:20 Gram Stain - Preliminary Sputum Sputum Culture - Preliminary 03/31/18 14:00 Blood Culture - Preliminary Blood No Growth after 24 hours
[2018-04-01 11:22] LABS: Glucose,Whole Blood 143 mg/dL (75-99)
[2018-04-01] MEDS: HEPARIN SOD,PORK IN 0.45% NACL 25,000 UNIT in 0.45% NACL 1 250ML.BAG IV SCH (12:18)
[2018-04-01] MEDS: MAGNESIUM SULFATE-D5W PMX 1 GM in DEXTROSE/WATER 1 100ML.BAG IVPB SCH ×2 (13:01→14:08)
[2018-04-01] MEDS: POTASSIUM CHLORIDE ER 20 MEQ TAB.ER PO SCH (14:09)
[2018-04-01 16:29] LABS: Glucose,Whole Blood 157 mg/dL (75-99)
[2018-04-01] MEDS: SODIUM CHLORIDE 0.9% 1,000 ML IV SCH (16:50)
[2018-04-01 20:35] LABS: Glucose,Whole Blood 128 mg/dL (75-99)
[2018-04-01] MEDS: LEVOFLOXACIN 750MG-D5W PMX 750 MG in DEXTROSE/WATER 1 150ML.BAG IVPB SCH (21:00)
--- NOTE | 2018-04-01 21:52 | CONS ---
CONSULTATION This is an 82-year-old female with history of long-standing laryngeal carcinoma, status post laryngectomy, history of underlying COPD, a history of recently discovered lung cancer diagnosed by a supraclavicular lymph node biopsy on the right side, currently on chemotherapy. The patient presented to the hospital with complaints of right-sided pleuritic-type chest pain. It was very sharp. She had a chest x-ray which showed the lesion in the left lung. That is likely her recently diagnosed lung cancer. By the way, the biopsy showed an epithelioid carcinoma. She then had a CT angiogram which revealed a large saddle embolism. She is currently on IV heparin. They are running her insurance to determine whether or not she would be a candidate for Eliquis or Xarelto. She will need lifelong anticoagulation in my opinion. The patient states that she really did not have any shortness of breath per se. Her complaints primarily were pain. The pain again was very pleuritic in nature. She may have had a pulmonary infarction syndrome as a result of her pulmonary embolism. HOME MEDICATIONS: Include Bisoprolol/hydrochlorothiazide, Mevacor, singular, omeprazole, albuterol inhaler, ascorbic acid, calcium, vitamin D3, nasal spray, melatonin, multivitamins, and amlodipine. ALLERGIES: Include PENICILLIN, SULFA ANTIBIOTICS. MEDICAL HISTORY: Throat cancer, status post laryngectomy probably 28 years ago. She also has a history of hypertension. In addition, she was recently diagnosed with lung cancer. 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 She had a positive PET scan in that area with multiple lymph nodes noted. The diagnosis was made by a right supraclavicular fine-needle aspiration. OTHER SURGICAL HISTORY: Includes hysterectomy. SOCIAL HISTORY: Positive for previous tobacco use. Denies any alcohol or illicit drug use. FAMILY HISTORY: Unremarkable. The patient is feeling reasonably well today. Interestingly, even though she had a rather large pulmonary embolism/saddle embolism, she did not have any evidence of right heart strain or any hemodynamic compromise. There was also no shifting of her septum or any other signs or symptoms of massive PE. REVIEW OF SYSTEMS: CONSTITUTIONAL: Negative. NEUROLOGIC: Negative. HEENT: Negative. CARDIOVASCULAR: Right chest pain. It was pleuritic in nature. PULMONARY: Negative. GI/: Negative. RHEUMATOLOGIC/IMMUNOLOGIC: Negative. ENDOCRINOLOGIC AND DERMATOLOGIC: Negative. Current vital signs are reviewed. Her temperature is 97.7, heart rate is 92, respiratory rate 18, blood pressure is 167/81, mean 109 and trach collar saturations 91%. Appears in no acute distress. Speaks easily without significant conversational dyspnea. HEENT examination is grossly unremarkable. Neck is supple. There is a midline there inject me. She has got a trach collar over the stoma. Cardiovascular examination reveals regular rhythm and rate. Heart rate 85 beats per minute. It is regular. S1, S2 normal. Lungs reveal a few scattered rhonchi. There is some expiratory wheezes. No crackles. Breath sounds equal. Abdomen soft. Bowel sounds are heard. Extremities are intact. No cyanosis, clubbing, or edema. Skin without rash. Neurologic examination is brief but nonfocal. CURRENT LABORATORY DATA: Includes a white count 7.7, hemoglobin 11, hematocrit 35.5, platelet count 325,000. PTT is 92.9, reflecting her IV heparin. Sodium, potassium, chloride, CO2 all normal. Anion gap normal. BUN and creatinine were 12 and 0.45. Her. Urine is negative. Influenza studies are negative. The patient had a chest x-ray that shows cardiomegaly and some significant basilar abnormalities, particularly in the left lower lobe. This is likely where her lung cancer is. Certainly, this was the area that lit up on PET scan. CT angiogram from the shows an extensive pulmonary embolism involving the left upper lobe pulmonary artery, right middle lobe and right lower lobe pulmonary arteries. There is a large area of airspace consolidation in the left lower lobe. There is also a small infiltrate right posterior lung base. The right posterior lung base is what was creating the pulmonary infarction syndrome. Previous lymph node biopsy was as noted. It was done on December [address] Lopez. It was positive for epithelioid cancer, primary lung. The patient also had a PET scan done in mid December, which showed a large 9.0 cm hypermetabolic left infrahilar/superior segment left lower lobe neoplasm encasing the left lower lobe bronchus and causing postobstructive pneumonitis similar to the one noted in November of 2017. She also has AP window adenopathy, subcarinal adenopathy, azygoesophageal recess adenopathy, right paratracheal adenopathy, superior mediastinal adenopathy, right supraclavicular adenopathy and left supraclavicular adenopathy. Medications are reviewed. ASSESSMENT: 1. 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 2. Recently diagnosed lung cancer, advanced, diagnosed by fine-needle aspiration of a right supraclavicular lymph node. 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 3. Previous history of laryngectomy for throat cancer, some 28 years ago. 4. History of hypertension. 5. Hyperlipidemia. 6. Gastroesophageal reflux disease. 7. History of carotid stents bilaterally. PLAN: The patient is currently on IV heparin. Her insurance is being checked to see whether or not she would be a candidate for Xarelto and/or Eliquis. We will continue to follow closely. She should have lifelong anticoagulation. Her overall prognosis is poor. No additional recommendations are made. MMODL / IJN: [id number] /
[2018-04-01] MEDS: MELATONIN 5 MG TABLET PO SCH (22:24)
[2018-04-02 05:57] LABS: Glucose,Whole Blood 132 mg/dL (75-99)
[2018-04-02] MEDS: INSULIN ASPART 100 UNIT/ML 1 ML 10 ML VIAL SQ SCH ×4 (06:05→21:01)
[2018-04-02 07:17] LABS: Anisocytosis Slight; Basophils % (A) 0 %; Eosinophils % (A) 1 %; HCT 35.3 % (34.0-46.0); HGB 10.9 gm/dL (11.4-16.0); Hypochromasia Slight; Lymphocytes # (A) 0.3 k/uL (1.0-4.8); Lymphocytes % (A) 4 %; MCH 27.1 pg (25.0-35.0); MCV 87.4 fL (80.0-100.0); Mean Platelet Volume 6.9; Monocytes # (A) 0.3 k/uL (0-1.0); Monocytes % (A) 4 %; Neutrophils # (A) 6.9 k/uL (1.3-7.7); Neutrophils % (A) 91 %; Platelet Count 265 k/uL (150-450); RBC 4.04 m/uL (3.80-5.40); RDW 19.4 % (11.5-15.5); WBC 7.7 k/uL (3.8-10.6)
[2018-04-02] MEDS: IPRATROPIUM-ALBUTEROL 3 ML NEB INHALATION SCH ×4 (08:26→21:29)
[2018-04-02] MEDS: MONTELUKAST 10 MG TAB PO SCH (08:36)
[2018-04-02] MEDS: methylPREDNISolone SOD SUCCI 125 MG/2 ML VIAL IV SCH ×2 (08:36→17:00)
[2018-04-02] MEDS: CHOLECALCIFEROL 1,000 UNIT TAB PO SCH (08:37)
[2018-04-02] MEDS: PANTOPRAZOLE 40 MG TABLET PO SCH (08:37)
[2018-04-02] MEDS: CALCIUM CARBONATE 500 MG CHEWABLE PO SCH (08:37)
[2018-04-02] MEDS: BISOPROLOL-HCTZ 10-6.25 MG 1 EACH TAB PO SCH (08:37)
[2018-04-02] MEDS: amLODIPine 5 MG TAB PO SCH (08:37)
[2018-04-02] MEDS: ATORVASTATIN 10 MG TAB PO SCH (08:37)
--- NOTE | 2018-04-02 10:50 | P.PN ---
Subjective Progress Note Date: 04/02/18 Principal diagnosis: Shortness of breath and recurrent cancer, pulmonary embolus Angel is an 82-year-old female well-known to my practice, with a known history of laryngeal carcinoma with laryngectomy, metastatic disease. Patient otherwise doing well is currently on heparin and will be starting therapy for pulmonary embolus Objective - Vital Signs Vital signs: Vital Signs Temp 98.2 F 04/02/18 08:00 Pulse 96 04/02/18 08:41 Resp 18 04/02/18 08:00 BP 154/81 04/02/18 08:00 Pulse Ox 98 04/02/18 08:00 Intake & Output 04/01/18 04/02/18 04/02/18 18:59 06:59 18:59 Intake Total 962.52 240 Output Total 800 300 Balance 962.52 -800 -60 Weight 68.1 kg Intake: Intake, IV Titration 482.52 Amount Heparin Sod,Pork in 0.45% 162.52 NaCl 25,000 unit In 0.45 % NaCl 1 250ml.bag @ 18 UNITS/KG/HR 12.24 mls/hr IV .[id number] [facility] Rx#: [id number] Magnesium Sulfate-D5w Pmx 200 1 gm In Dextrose/Water 1 100ml.bag @ 100 mls/hr IVPB Q1H [facility] Rx#: [id number] Sodium Chloride 0.9% 1, 120 000 ml @ 20 mls/hr IV . Q24H [facility] Rx#:[id number] Oral 480 240 Output: Urine 800 300 Other: Voiding Method Bedpan Bedpan - Exam General: [Patient awake, alert and oriented times 3. Patient in no acute distress.] Status post laryngectomy, however patient does speak has permanent stoma in the neck HEENT: [PERRL. EOMI. No pharyngeal erythema or exudate.] Neck: [No adenopathy.] Cardiac: [Heart regular in rate and rhythm. No S3. No S4. No clicks, rubs. No murmur.] Lungs: [Clear to auscultation bilaterally.] Abdomen: [No mass. No organomegaly. Bowel sounds presnt and normoactive in all 4 quadrants.] Extremes: [No edema no cyanosis no claudication normal pulses] : [] Musculoskeletal: [No joint erythema, edema or tenderness.] Skin: [No rash.] Neurologic: [No lateralizing deficits. CN II - XII grossly intact.] Lymphatic: [No adenopathy.] - Labs CBC & Chem 7: 04/02/18 06:44 04/01/18 06:26 Labs: Abnormal Lab Results - Last 24 Hours (Table) 04/01/18 04/01/18 04/01/18 Range/Units 11:05 16:25 16:26 Hgb (11.4-16.0) gm/dL RDW (11.5-15.5) % Lymphocytes # (1.0-4.8) k/uL APTT 44.5 H (22.0-30.0) sec POC Glucose (mg/dL) 143 H 157 H (75-99) mg/dL 04/01/18 04/02/18 04/02/18 Range/Units 20:34 01:17 05:55 Hgb (11.4-16.0) gm/dL RDW (11.5-15.5) % Lymphocytes # (1.0-4.8) k/uL APTT 55.4 H (22.0-30.0) sec POC Glucose (mg/dL) 128 H 132 H (75-99) mg/dL 04/02/18 04/02/18 Range/Units 06:44 06:44 Hgb 10.9 L (11.4-16.0) gm/dL RDW 19.4 H (11.5-15.5) % Lymphocytes # 0.3 L (1.0-4.8) k/uL APTT 59.9 H (22.0-30.0) sec POC Glucose (mg/dL) (75-99) mg/dL Microbiology - Last 24 Hours (Table) 04/01/18 13:20 Gram Stain - Preliminary Sputum Sputum Culture - Preliminary 03/31/18 14:00 Blood Culture - Preliminary Blood No Growth after 24 hours Assessment and Plan (1) COPD (chronic obstructive pulmonary disease) Current Visit: Yes Status: Acute Code(s): J44.9 - CHRONIC OBSTRUCTIVE PULMONARY DISEASE, UNSPECIFIED SNOMED Code(s): 59954966 (2) Pneumonia Current Visit: Yes Status: Acute Code(s): J18.9 - PNEUMONIA, UNSPECIFIED ORGANISM SNOMED Code(s): 379468164 (3) Saddle embolus of pulmonary artery Current Visit: Yes Status: Acute Code(s): I26.92 - SADDLE EMBOLUS OF PULMONARY ARTERY W/O ACUTE COR P[place]MONALE SNOMED Code(s): 902515387528354 Plan: Patient had actually doing fairly well today Post-laryngectomy for laryngeal Carcinoma 28 years ago Recurrent lung cancer Large saddle pulmonary embolus, possible infarction syndrome right lung Hyperlipidemia distress esophageal reflux disease Peripheral vascular disease with carotid stents bilaterally Prognosis poor
[2018-04-02] MEDS: MULTIVITAMINS, THERA 1 EACH TAB PO SCH (12:19)
--- NOTE | 2018-04-02 12:21 | P.CONS ---
History of Present Illness - Reason for Consult Consult date: 04/02/18 pulmonary embolish Requesting physician: Jean Claude Muller Jr - Chief Complaint Dyspnea - History of Present Illness Ms. Hobson is a very pleasant 82-year-old female with a history of laryngeal squamous cell carcinoma diagnosed 20 years ago, status post radiation followed by laryngectomy, recently found to have lung mass with extensive lymphadenopathy , no distant metastatic disease, started on palliative chemotherapy with weekly carboplatin, last dose on 03/28/18, who is here for dyslipidemia, workup revealing bilateral opacities on chest x-ray and CT revealing bilateral significant pulmonary emboli burden in the left upper lobe, right middle lobe, and right lower lobe. She was started on heparin drip and admitted. Pulmonary consulted. on antibiotics and steroids well for possible pneumonia and COPD exacerbation. Overall feeling slightly better now. No personal history of autoimmune disease, blood clots, miscarriages, and no recent travel, immobility , hospitalizations, hormone therapy, or surgeries. She does mention a fall about a week ago. She did bruise her left arm. No other trauma. She is not sure how she fell. Thinks she passed out. Since then she's been having increasing pleuritic chest pain with coughing, which prompted her to come to the ER. No leg swelling. No other complaints. History of smoking, quit 28 years ago when she was diagnosed with laryngeal cancer. Family history includes esophageal cancer in her brother. Daughter with autoimmune disease. Mother had a blood clot many years ago, unclear etiology. One sister had 2 very early miscarriages. Review of Systems All systems: negative Constitutional: Reports as per HPI Past Medical History Past Medical History: Cancer, Hypertension, Vascular Disorder Additional Past Medical History / Comment(s): total -laryngectomy approx 1989. neck stoma; lung CA (01/2018) History of Any Multi-Drug Resistant Organisms: None Reported Past Surgical History: Hysterectomy Additional Past Surgical History / Comment(s): total -laryngectomy approx 1989. carotid stents bilaterally Past Anesthesia/Blood Transfusion Reactions: No Reported Reaction Past Psychological History: No Psychological Hx Reported Smoking Status: Former smoker Past Alcohol Use History: None Reported Past Drug Use History: None Reported - Past Family History Father Family Medical History: Myocardial Infarction (ND) Mother Family Medical History: Diabetes Mellitus Additional Family Medical History / Comment(s): macular degeneration Medications and Allergies Home Medications Medication Instructions Recorded Confirmed Type Bisoprol/Hydrochlorothiazide 1 tab PO DAILY 12/25/17 03/31/18 History [Bisoprolol-Hctz 10-6.25 mg Tab] Lovastatin [Mevacor] 20 tab PO DAILY 12/25/17 03/31/18 History Montelukast [Singulair] 10 mg PO DAILY 12/25/17 03/31/18 History Omeprazole 20 mg PO DAILY 12/25/17 03/31/18 History Albuterol Inhaler [Ventolin Hfa 1 - 2 puff INHALATION RT-Q6H PRN 03/31/18 History Inhaler] Ascorbic Acid [Vitamin C] 1,000 mg PO DAILY 03/31/18 03/31/18 History Calcium 2,000 mg PO DAILY 03/31/18 03/31/18 History Cholecalciferol [Vitamin D3] 5,000 unit PO DAILY 03/31/18 03/31/18 History Hfb Nasal [place] 1 spray DAILY 03/31/18 03/31/18 History Melatonin 10 mg PO HS 03/31/18 03/31/18 History Multivitamins, Thera [Multivitamin 1 tab PO DAILY 03/31/18 03/31/18 History (formulary)] amLODIPine [Norvasc] 5 mg PO DAILY 03/31/18 03/31/18 History Allergies Allergy/AdvReac Type Severity Reaction Status Date / Time penicillin G Allergy Rash/Hives Verified 03/31/18 13:12 Sulfa (Sulfonamide Allergy Rash/Hives Verified 03/31/18 13:12 Antibiotics) Physical Exam Vitals: Vital Signs Temp Pulse Pulse Resp BP Pulse Ox 04/02/18 08:41 96 04/02/18 08:26 88 04/02/18 08:00 98.2 F 75 18 154/81 98 04/02/18 04:00 97.8 F 68 20 109/58 96 04/02/18 00:00 97.8 F 67 18 109/66 95 04/01/18 20:00 78 18 125/78 95 04/01/18 19:34 96 04/01/18 19:26 92 L 04/01/18 19:24 92 04/01/18 16:01 95 04/01/18 16:00 96.6 F L 91 18 140/73 93 L 04/01/18 15:51 94 04/01/18 13:10 92 04/01/18 12:50 96 04/01/18 12:00 97.7 F 84 18 132/75 91 L Intake and Output 04/01/18 04/02/18 04/02/18 22:59 06:59 14:59 Intake Total 72.93 240 Output Total 400 400 300 Balance -327.07 -400 -60 Intake: Intake, IV Titration 72.93 Amount Heparin Sod,Pork in 0.45% 72.93 NaCl 25,000 unit In 0.45 % NaCl 1 250ml.bag @ 18 UNITS/KG/HR 12.24 mls/hr IV .[id number] [facility] Rx#: [id number] Oral 240 Output: Urine 400 400 300 Other: Voiding Method Bedpan Bedpan Weight 68.1 kg General: In no acute distress. HEENT: Mucosa moist. Neck: Neck supple. Lymph: No cervical/supraclavicular LAD. Lungs: CTA-B without wheezing or rhonchi. Heart: RRR. No LE edema. Abdomen: Soft, nontender, nondistended, with positive bowel sounds. MSK: 4/4 strength in all 4 extremities. Neuro: Alert and oriented 3. No obvious gross neurologic deficits. Skin: No jaundice or rash. Psych: Appropriate affect. Results CBC & Chem 7: 04/02/18 06:44 04/01/18 06:26 Labs: Abnormal Lab Results - Last 24 Hours (Table) 04/01/18 04/01/18 04/01/18 Range/Units 11:05 16:25 16:26 Hgb (11.4-16.0) gm/dL RDW (11.5-15.5) % Lymphocytes # (1.0-4.8) k/uL APTT 44.5 H (22.0-30.0) sec POC Glucose (mg/dL) 143 H 157 H (75-99) mg/dL 04/01/18 04/02/18 04/02/18 Range/Units 20:34 01:17 05:55 Hgb (11.4-16.0) gm/dL RDW (11.5-15.5) % Lymphocytes # (1.0-4.8) k/uL APTT 55.4 H (22.0-30.0) sec POC Glucose (mg/dL) 128 H 132 H (75-99) mg/dL 04/02/18 04/02/18 Range/Units 06:44 06:44 Hgb 10.9 L (11.4-16.0) gm/dL RDW 19.4 H (11.5-15.5) % Lymphocytes # 0.3 L (1.0-4.8) k/uL APTT 59.9 H (22.0-30.0) sec POC Glucose (mg/dL) (75-99) mg/dL Microbiology - Last 24 Hours (Table) 04/01/18 13:20 Gram Stain - Preliminary Sputum Sputum Culture - Preliminary 03/31/18 14:00 Blood Culture - Preliminary Blood No Growth after 24 hours Chest x-ray: report reviewed CT scan - chest: report reviewed Assessment and Plan Assessment: 1. Bilateral PE 2. Pneumonia 3. COPD exacerbation 4. Lung cancer on chemotherapy Plan: Ms. Hobson is a very pleasant 82-year-old female with multiple comorbidities including laryngeal cancer diagnosed 28 years ago and now with a lung mass with significant mediastinal lymphadenopathy on palliative chemotherapy with carboplatin, here for dyspnea, found to have bilateral PEs as well as possible pneumonia and COPD exacerbation which she is being treated for. Agree with heparin drip. Her PE is provoked due to malignancy. She can follow-up in clinic with Dr. Baxter to consider hypercoagulable workup, possibly with a APAS screen, due to her family history although highly unlikely for this to develop in her age group, and she does have an underlying known provoking factor, her malignancy. We'll hold off on hypercoagulable workup at this time. No objections to oral anticoagulation pending insurance approval. Agree that she would benefit from long-term anticoagulation as long as this remains tolerated without bleeding. As for her malignancy, she should continue to follow up and continue her treatments outpatient as scheduled once discharged. Discussed with the patient in detail and she is agreeable with the plan. All of her questions were answered.
[2018-04-02 12:22] LABS: Glucose,Whole Blood 139 mg/dL (75-99)
[2018-04-02] MEDS: SODIUM CHLORIDE 0.9% 1,000 ML IV SCH (17:00)
[2018-04-02] MEDS: LEVOFLOXACIN 750MG-D5W PMX 750 MG in DEXTROSE/WATER 1 150ML.BAG IVPB SCH (17:00)
[2018-04-02 17:22] LABS: Glucose,Whole Blood 177 mg/dL (75-99)
[2018-04-02] MEDS: HEPARIN SOD,PORK IN 0.45% NACL 25,000 UNIT in 0.45% NACL 1 250ML.BAG IV SCH (19:09)
[2018-04-02 21:00] LABS: Glucose,Whole Blood 146 mg/dL (75-99)
[2018-04-02] MEDS: MELATONIN 5 MG TABLET PO SCH (21:53)
[2018-04-03] MEDS: methylPREDNISolone SOD SUCCI 125 MG/2 ML VIAL IV SCH ×2 (01:48→09:30)
[2018-04-03 05:41] LABS: Glucose,Whole Blood 129 mg/dL (75-99)
[2018-04-03] MEDS: HEPARIN SOD,PORK IN 0.45% NACL 25,000 UNIT in 0.45% NACL 1 250ML.BAG IV SCH (05:52)
[2018-04-03] MEDS: INSULIN ASPART 100 UNIT/ML 1 ML 10 ML VIAL SQ SCH ×4 (05:53→22:40)
[2018-04-03 06:59] LABS: Anisocytosis Slight; Basophils % (A) 0 %; Eosinophils % (A) 0 %; HCT 34.4 % (34.0-46.0); HGB 10.9 gm/dL (11.4-16.0); Hypochromasia Slight; Lymphocytes # (A) 0.3 k/uL (1.0-4.8); Lymphocytes % (A) 4 %; MCH 27.6 pg (25.0-35.0); MCHC 31.6 g/dL (31.0-37.0); MCV 87.3 fL (80.0-100.0); Mean Platelet Volume 6.9; Monocytes # (A) 0.3 k/uL (0-1.0); Monocytes % (A) 4 %; Neutrophils # (A) 6.9 k/uL (1.3-7.7); Neutrophils % (A) 91 %; Platelet Count 274 k/uL (150-450); RBC 3.94 m/uL (3.80-5.40); RDW 19.1 % (11.5-15.5); WBC 7.6 k/uL (3.8-10.6)
[2018-04-03] MEDS: IPRATROPIUM-ALBUTEROL 3 ML NEB INHALATION SCH ×4 (07:04→20:32)
[2018-04-03] MEDS: CALCIUM CARBONATE 500 MG CHEWABLE PO SCH (09:04)
[2018-04-03] MEDS: ATORVASTATIN 10 MG TAB PO SCH (09:05)
[2018-04-03] MEDS: amLODIPine 5 MG TAB PO SCH (09:05)
[2018-04-03] MEDS: BISOPROLOL-HCTZ 10-6.25 MG 1 EACH TAB PO SCH (09:05)
[2018-04-03] MEDS: CHOLECALCIFEROL 1,000 UNIT TAB PO SCH (09:05)
[2018-04-03] MEDS: MULTIVITAMINS, THERA 1 EACH TAB PO SCH (09:05)
[2018-04-03] MEDS: PANTOPRAZOLE 40 MG TABLET PO SCH (09:30)
[2018-04-03] MEDS: MONTELUKAST 10 MG TAB PO SCH (09:30)
[2018-04-03] MEDS ORDERED: CALCIUM CARBONATE 500 MG CHEWABLE PO SCH (11:20)
--- NOTE | 2018-04-03 11:29 | P.PN ---
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 Patient has been on IV heparin infusion. Initially presented with pleuritic type chest pain on the left side, today she states the pain had resolved unless she takes a very deep breath. She denies any dyspnea, no chest congestion, her vitals have been stable, no chest pain. She is on trach collar at 15 L, her pulse ox is 96%, she is afebrile, not tachycardic, vital signs are stable. Sputum culture was positive for Staphylococcus aureus, blood cultures were negative. No fever or chills. Discharge planning is checking the patient's coverage and patient can be started on Eliquis or Xarelto. His labs have been reviewed, WBC 7.6, hemoglobin is 10.9. Objective - Vital Signs Vital signs: Vital Signs Temp 97.8 F 04/03/18 04:00 Pulse 77 04/03/18 07:14 Resp 18 04/03/18 04:00 BP 109/58 04/03/18 04:00 Pulse Ox 96 04/03/18 04:00 Intake & Output 04/02/18 04/03/18 04/03/18 18:59 06:59 18:59 Intake Total 1000 960 230 Output Total 600 600 300 Balance 400 360 -70 Weight 68 kg Intake: Intake, IV Titration 160 Amount Sodium Chloride 0.9% 1, 160 000 ml @ 20 mls/hr IV . Q24H [facility] Rx#:[id number] Oral 840 960 230 Output: Urine 600 600 300 Other: Voiding Method Bedpan Bedpan - Exam GENERAL EXAM: Alert, active, comfortable in no apparent distress. HEAD: Normocephalic/atraumatic. EYES: Normal reaction of pupils, equal size. Conjunctiva pink, sclera white. NOSE: Clear with pink turbinates. THROAT: No erythema or exudates. NECK: No masses, no JVD, no thyroid enlargement, no adenopathy. 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 Symmetrical expansion. LUNGS: Equal air entry with no crackles, wheeze, rhonchi or dullness. CVS: Regular rate and rhythm, normal S1 and S2, no gallops, no murmurs, no rubs ABDOMEN: Soft, nontender. No hepatosplenomegaly, normal bowel sounds, no guarding or rigidity. EXTREMITIES: No clubbing, no edema, no cyanosis, 2+ pulses and upper and lower extremities. MUSCULOSKELETAL: Muscle strength and tone normal. SPINE: No scoliosis or deformity SKIN: No rashes CENTRAL NERVOUS SYSTEM: Alert and oriented -3. No focal deficits, tone is normal in all 4 extremities. PSYCHIATRIC: Alert and oriented -3. Appropriate affect. Intact judgment and insight. - Labs CBC & Chem 7: 04/03/18 06:04 04/01/18 06:26 Labs: Abnormal Lab Results - Last 24 Hours (Table) 04/02/18 04/02/18 04/02/18 Range/Units 12:14 17:20 20:59 Hgb (11.4-16.0) gm/dL RDW (11.5-15.5) % Lymphocytes # (1.0-4.8) k/uL APTT (22.0-30.0) sec POC Glucose (mg/dL) 139 H 177 H 146 H (75-99) mg/dL 04/03/18 04/03/18 04/03/18 Range/Units 05:39 06:04 06:04 Hgb 10.9 L (11.4-16.0) gm/dL RDW 19.1 H (11.5-15.5) % Lymphocytes # 0.3 L (1.0-4.8) k/uL APTT 60.0 H (22.0-30.0) sec POC Glucose (mg/dL) 129 H (75-99) mg/dL Microbiology - Last 24 Hours (Table) 04/01/18 13:20 Gram Stain - Final Sputum Sputum Culture - Final Staphylococcus aureus 03/31/18 14:00 Blood Culture - Preliminary Blood No Growth after 48 hours Assessment and Plan Plan: Assessment: #1. Large saddle pulmonary embolism with pulmonary infarction syndrome and right pleuritic chest pain #2. Recently diagnosed lung mass with significant mediastinal lymphadenopathy on palliative chemotherapy #3. Previous history of laryngectomy for throat cancer 28 years ago, #4. History of hypertension #5. Hyperlipidemia #6. GERD #7. History of carotid stents Plan: We will add doxycycline, and culture was positive for staph aureus, patient may be chronically colonized, clinically she is not exhibiting any symptoms, no shortness of breath, no fever or chills, no leukocytosis. Continue the heparin infusion, discharge planning to check coverage for Xarelto or Eliquis, patient will need lifelong anticoagulation. We'll stop the steroids and breathing treatments. The Levaquin will be [place]'ed. Patient is okay to ambulate to the bathroom, with assistance. Her overall prognosis is poor. Clinically she is stable, left pleuritic chest pain has resolved, vital signs are stable, she is in no distress I performed a history & physical examination of the patient and discussed their management with my nurse practitioner, Sophia Alejo. I reviewed the nurse practitioner's note and agree with the documented findings and plan of care. Lung sounds are positive for clear breath sounds. The findings and the impression was discussed with the patient. I attest to the documentation by the nurse practitioner. Time with Patient: Less than 30
[2018-04-03 12:01] LABS: Glucose,Whole Blood 113 mg/dL (75-99)
--- NOTE | 2018-04-03 12:44 | P.PN ---
Subjective Progress Note Date: 04/03/18 Principal diagnosis: Shortness of breath and recurrent cancer, pulmonary embolus Angel is an 82-year-old female well-known to my practice, with a known history of laryngeal carcinoma with laryngectomy, metastatic disease. Patient otherwise doing well is currently on heparin and will be starting therapy for pulmonary embolus 04/03/2018 pt awake, alert, oriented x 3 afebrile no complaints doing well Objective - Vital Signs Vital signs: Vital Signs Temp 98.2 F 04/03/18 08:00 Pulse 78 04/03/18 11:19 Resp 18 04/03/18 11:20 BP 123/66 04/03/18 08:00 Pulse Ox 90 L 04/03/18 11:19 Intake & Output 04/02/18 04/03/18 04/03/18 18:59 06:59 18:59 Intake Total 1000 960 230 Output Total 600 600 300 Balance 400 360 -70 Weight 68 kg Intake: Intake, IV Titration 160 Amount Sodium Chloride 0.9% 1, 160 000 ml @ 20 mls/hr IV . Q24H [facility] Rx#:[id number] Oral 840 960 230 Output: Urine 600 600 300 Other: Voiding Method Bedpan Bedpan - Exam General: [Patient awake, alert and oriented times 3. Patient in no acute distress.] Status post laryngectomy, however patient does speak has permanent stoma in the neck HEENT: [PERRL. EOMI. No pharyngeal erythema or exudate.] Neck: [No adenopathy.] Cardiac: [Heart regular in rate and rhythm. No S3. No S4. No clicks, rubs. No murmur.] Lungs: [Clear to auscultation bilaterally.] Abdomen: [No mass. No organomegaly. Bowel sounds presnt and normoactive in all 4 quadrants.] Extremes: [No edema no cyanosis no claudication normal pulses] : [] Musculoskeletal: [No joint erythema, edema or tenderness.] Skin: [No rash.] Neurologic: [No lateralizing deficits. CN II - XII grossly intact.] Lymphatic: [No adenopathy.] - Labs CBC & Chem 7: 04/03/18 06:04 04/01/18 06:26 Labs: Abnormal Lab Results - Last 24 Hours (Table) 04/02/18 04/02/18 04/03/18 Range/Units 17:20 20:59 05:39 Hgb (11.4-16.0) gm/dL RDW (11.5-15.5) % Lymphocytes # (1.0-4.8) k/uL APTT (22.0-30.0) sec POC Glucose (mg/dL) 177 H 146 H 129 H (75-99) mg/dL 04/03/18 04/03/18 04/03/18 Range/Units 06:04 06:04 11:44 Hgb 10.9 L (11.4-16.0) gm/dL RDW 19.1 H (11.5-15.5) % Lymphocytes # 0.3 L (1.0-4.8) k/uL APTT 60.0 H (22.0-30.0) sec POC Glucose (mg/dL) 113 H (75-99) mg/dL Microbiology - Last 24 Hours (Table) 04/01/18 13:20 Gram Stain - Final Sputum Sputum Culture - Final Staphylococcus aureus 03/31/18 14:00 Blood Culture - Preliminary Blood No Growth after 48 hours Assessment and Plan Plan: Patient had actually doing fairly well today Post-laryngectomy for laryngeal Carcinoma 28 years ago Recurrent lung cancer Large saddle pulmonary embolus, possible infarction syndrome right lung Hyperlipidemia distress esophageal reflux disease Peripheral vascular disease with carotid stents bilaterally Prognosis poor Time with Patient: Greater than 30
--- NOTE | 2018-04-03 14:37 | US ---
EXAMINATION TYPE: US venous doppler duplex LE DATE OF EXAM: 04/03/2018 1:48 PM COMPARISON: Prior ultrasound 2011 bilateral CLINICAL HISTORY: PE, baseline. SIDE PERFORMED: Bilateral TECHNIQUE: The lower extremity deep venous system is examined utilizing real time linear array sonog daniel with graded compression, doppler sonography and color-flow sonography. VESSELS IMAGED: External Iliac Vein (EIV) Common Femoral Vein Deep Femoral Vein Greater Saphenous Vein * Femoral Vein Popliteal Vein Small Saphenous Vein * Proximal Calf Veins (* superficial vessels) Right Leg: Positive for DVT starting in right proximal popliteal vein and extending through proximal calf veins Left Leg: Negative for DVT Preliminary results phoned to [facility] at 2:14pm. Grayscale, color doppler, spectral doppler imaging performed of the deep veins of the bilateral lower extremities. There is normal flow, compressibility, vascular waveforms in the left lower extremity. IMPRESSION: New short segment acute DVT proximal popliteal vein right lower extremity below knee into the calf veins.
[2018-04-03 17:08] LABS: Glucose,Whole Blood 139 mg/dL (75-99)
--- NOTE | 2018-04-03 17:10 | P.PN ---
Subjective Progress Note Date: 04/03/18 Principal diagnosis: PE, COPD exacerbation Pt seen in f/u, she started ambulating to the bathroom today, denies chest pain , palpitations, HELENA, hemoptysis. She feels better then on admit. No bleeding to report while on heparin, no pain. Objective - Vital Signs Vital signs: Vital Signs Temp 98.1 F 04/03/18 12:00 Pulse 76 04/03/18 16:25 Resp 16 04/03/18 16:00 BP 125/66 04/03/18 16:00 Pulse Ox 92 L 04/03/18 16:17 Intake & Output 04/02/18 04/03/18 04/03/18 18:59 06:59 18:59 Intake Total 1000 960 490 Output Total 600 600 700 Balance 400 360 -210 Weight 68 kg Intake: Intake, IV Titration 160 260 Amount Levofloxacin 750Mg-D5w 100 Pmx 750 mg In Dextrose/ Water 1 150ml.bag @ 100 mls/hr IVPB Q24H [facility] Rx#: [id number] Sodium Chloride 0.9% 1, 160 160 000 ml @ 20 mls/hr IV . Q24H [facility] Rx#:[id number] Oral 840 960 230 Output: Urine 600 600 700 Other: Voiding Method Bedpan Bedpan # Voids 1 - Constitutional General appearance: Present: average body habitus, cooperative, no acute distress - EENT EENT Comment(s): well healed trach opening in the suprasternal notch Eyes: Present: anicteric sclerae, EOMI - Respiratory Respiratory: bilateral: diminished, rales (few scattered) - Cardiovascular Heart sounds: normal: S1, S2 - Peripheral edema leg Peripheral Edema: bilateral: None - Gastrointestinal General gastrointestinal: Present: normal bowel sounds, soft - Integumentary Integumentary: Present: normal - Neurologic Neurologic: Present: CNII-XII intact - Musculoskeletal Musculoskeletal: Present: strength equal bilaterally - Psychiatric Psychiatric: Present: A&O x's 3, appropriate affect, intact judgment & insight - Labs CBC & Chem 7: 04/03/18 06:04 04/01/18 06:26 Labs: Abnormal Lab Results - Last 24 Hours (Table) 04/02/18 04/02/18 04/03/18 Range/Units 17:20 20:59 05:39 Hgb (11.4-16.0) gm/dL RDW (11.5-15.5) % Lymphocytes # (1.0-4.8) k/uL APTT (22.0-30.0) sec POC Glucose (mg/dL) 177 H 146 H 129 H (75-99) mg/dL 04/03/18 04/03/18 04/03/18 Range/Units 06:04 06:04 11:44 Hgb 10.9 L (11.4-16.0) gm/dL RDW 19.1 H (11.5-15.5) % Lymphocytes # 0.3 L (1.0-4.8) k/uL APTT 60.0 H (22.0-30.0) sec POC Glucose (mg/dL) 113 H (75-99) mg/dL Microbiology - Last 24 Hours (Table) 03/31/18 14:00 Blood Culture - Preliminary Blood No Growth after 72 hours 04/01/18 13:20 Gram Stain - Final Sputum Sputum Culture - Final Staphylococcus aureus - Imaging and Cardiology CT scan - chest: report reviewed reviewed doppler report Assessment and Plan (1) Deep vein thrombosis (DVT) of proximal vein of right lower extremity Current Visit: Yes Status: Acute Code(s): I82.4Y1 - AC EMBLSM AND THOMBOS UNSP DEEP VEINS OF R PROX LOW EXTRM SNOMED Code(s): 881789677 (2) Saddle embolus of pulmonary artery Current Visit: Yes Status: Acute Code(s): I26.92 - SADDLE EMBOLUS OF PULMONARY ARTERY W/O ACUTE COR PULMONALE SNOMED Code(s): 591911907677906 (3) Non-small cell lung cancer (NSCLC) Narrative/Plan: Pt has done well on single agent carboplatin for palliation of disease. Will cont current regimen once pt has completed abx. Do not anticipate dose adjustment at this time. Treatment f/u imaging after resolution of COPD/pneumonia Current Visit: Yes Status: Acute Priority: High Code(s): C34.90 - MALIGNANT NEOPLASM OF UNSP PART OF UNSP BRONCHUS OR LUNG SNOMED Code(s): 907138627 (4) COPD (chronic obstructive pulmonary disease) Narrative/Plan: Pulmonary and IM mgmt of exacerbation Current Visit: Yes Status: Acute Priority: High Code(s): J44.9 - CHRONIC OBSTRUCTIVE PULMONARY DISEASE, UNSPECIFIED SNOMED Code(s): 56546519 Plan: Bello PE and RLE DVT: cont heparin for now. She has been on since the . Will change to eliquis this evening.
[2018-04-03] MEDS: DOXYCYCLINE 100 MG CAP PO SCH ×2 (17:36→20:22)
[2018-04-03] MEDS: MELATONIN 5 MG TABLET PO SCH (20:22)
[2018-04-03] MEDS: APIXABAN 5 MG TAB PO SCH (20:22)
[2018-04-03 21:03] LABS: Glucose,Whole Blood 217 mg/dL (75-99)
[2018-04-03] MEDS: SODIUM CHLORIDE 0.9% 1,000 ML IV SCH (23:07)
[2018-04-04 05:56] LABS: Glucose,Whole Blood 75 mg/dL (75-99)
[2018-04-04] MEDS: INSULIN ASPART 100 UNIT/ML 1 ML 10 ML VIAL SQ SCH ×2 (06:16→12:32)
[2018-04-04 07:07] LABS: Anisocytosis Slight; Basophils % (A) 0 %; Eosinophils % (A) 0 %; HCT 36.6 % (34.0-46.0); HGB 11.5 gm/dL (11.4-16.0); Hypochromasia Slight; Lymphocytes # (A) 0.6 k/uL (1.0-4.8); Lymphocytes % (A) 9 %; MCH 27.2 pg (25.0-35.0); MCHC 31.5 g/dL (31.0-37.0); MCV 86.5 fL (80.0-100.0); Mean Platelet Volume 6.7; Monocytes # (A) 0.3 k/uL (0-1.0); Monocytes % (A) 4 %; Neutrophils # (A) 6.4 k/uL (1.3-7.7); Neutrophils % (A) 86 %; Platelet Count 305 k/uL (150-450); RBC 4.23 m/uL (3.80-5.40); RDW 19.2 % (11.5-15.5); WBC 7.5 k/uL (3.8-10.6)
[2018-04-04] MEDS: IPRATROPIUM-ALBUTEROL 3 ML NEB INHALATION SCH ×3 (08:09→16:35)
[2018-04-04] MEDS: APIXABAN 5 MG TAB PO SCH (08:13)
[2018-04-04] MEDS: amLODIPine 5 MG TAB PO SCH (08:13)
[2018-04-04] MEDS: MONTELUKAST 10 MG TAB PO SCH (08:13)
[2018-04-04] MEDS: CHOLECALCIFEROL 1,000 UNIT TAB PO SCH (08:13)
[2018-04-04] MEDS: PANTOPRAZOLE 40 MG TABLET PO SCH (08:13)
[2018-04-04] MEDS: MULTIVITAMINS, THERA 1 EACH TAB PO SCH (08:14)
[2018-04-04] MEDS: ATORVASTATIN 10 MG TAB PO SCH (08:14)
[2018-04-04] MEDS: BISOPROLOL-HCTZ 10-6.25 MG 1 EACH TAB PO SCH (08:14)
[2018-04-04] MEDS: DOXYCYCLINE 100 MG CAP PO SCH (08:14)
[2018-04-04 10:53] VITALS: RESP 16; TEMP 98.3
[2018-04-04 11:17] LABS: Glucose,Whole Blood 74 mg/dL (75-99)
[2018-04-04] MEDS ORDERED: CALCIUM CARBONATE 500 MG CHEWABLE PO SCH (12:00)
[2018-04-04 12:51] VITALS: BP 145/69
--- NOTE | 2018-04-04 13:28 | P.PN ---
Subjective Progress Note Date: 04/04/18 Principal diagnosis: Pulmonary embolism with pulmonary infarction syndrome right pleuritic chest pain. This is a 82-year-old female with history of long-standing laryngeal carcinoma status post laryngectomy, history of underlying COPD, history of recently discovered lung cancer diagnosed by supra clavicular lymph node biopsy on the right side currently on chemotherapy. Patient has been on IV heparin infusion. Initially presented with pleuritic type chest pain on the left side, today she states the pain had resolved unless she takes a very deep breath. She denies any dyspnea, no chest congestion, her vitals have been stable, no chest pain. She is on trach collar at 15 L, her pulse ox is 96%, she is afebrile, not tachycardic, vital signs are stable. Sputum culture was positive for Staphylococcus aureus, blood cultures were negative. No fever or chills. Discharge planning is checking the patient's coverage and patient can be started on Eliquis or Xarelto. His labs have been reviewed, WBC 7.6, hemoglobin is 10.9. The patient is seen again today 04/04/2018 in follow-up on the regular medical floor. She is currently resting quite comfortably in bed. She is awake and alert in no acute distress. She denies any worsening shortness of breath. Right-sided chest discomfort has improved. He has been initiated on Eliquis. Heparin drip is discontinued. She is maintaining O2 saturations at 88% on room air currently and may require 28% trach collar in the outpatient setting. She' s been afebrile. Hemodynamically stable. Sputum was positive for Staphylococcus aureus. Suspect colonization. White count 7.5. Hemoglobin 11.5. Currently on doxycycline. Objective - Vital Signs Vital signs: Vital Signs Temp 98.3 F 04/04/18 08:00 Pulse 84 04/04/18 12:00 Resp 16 04/04/18 12:00 BP 145/69 04/04/18 12:00 Pulse Ox 88 L 04/04/18 12:00 Intake & Output 04/03/18 04/04/18 04/04/18 18:59 06:59 18:59 Intake Total 720 100 462 Output Total 700 Balance 20 100 462 Weight 68.2 kg Intake: Intake, IV Titration 260 100 Amount Levofloxacin 750Mg-D5w 100 Pmx 750 mg In Dextrose/ Water 1 150ml.bag @ 100 mls/hr IVPB Q24H [facility] Rx#: [id number] Sodium Chloride 0.9% 1, 160 100 000 ml @ 20 mls/hr IV . Q24H [facility] Rx#:[id number] Oral 460 462 Output: Urine 700 Other: Voiding Method Bedpan Bedpan Bedpan # Voids 1 1 2 - Exam GENERAL EXAM: Alert, active, comfortable in no apparent distress. HEAD: Normocephalic/atraumatic. EYES: Normal reaction of pupils, equal size. Conjunctiva pink, sclera white. NOSE: Clear with pink turbinates. THROAT: No erythema or exudates. NECK: No masses, no JVD, no thyroid enlargement, no adenopathy. 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 Symmetrical expansion. LUNGS: Equal air entry with no crackles, wheeze, rhonchi or dullness. CVS: Regular rate and rhythm, normal S1 and S2, no gallops, no murmurs, no rubs ABDOMEN: Soft, nontender. No hepatosplenomegaly, normal bowel sounds, no guarding or rigidity. EXTREMITIES: No clubbing, no edema, no cyanosis, 2+ pulses and upper and lower extremities. MUSCULOSKELETAL: Muscle strength and tone normal. SPINE: No scoliosis or deformity SKIN: No rashes CENTRAL NERVOUS SYSTEM: Alert and oriented -3. No focal deficits, tone is normal in all 4 extremities. PSYCHIATRIC: Alert and oriented -3. Appropriate affect. Intact judgment and insight. - Labs CBC & Chem 7: 04/04/18 06:28 04/01/18 06:26 Labs: Abnormal Lab Results - Last 24 Hours (Table) 04/03/18 04/03/18 04/04/18 Range/Units 17:00 20:58 06:28 RDW 19.2 H (11.5-15.5) % Lymphocytes # 0.6 L (1.0-4.8) k/uL POC Glucose (mg/dL) 139 H 217 H (75-99) mg/dL 04/04/18 Range/Units 11:10 RDW (11.5-15.5) % Lymphocytes # (1.0-4.8) k/uL POC Glucose (mg/dL) 74 L (75-99) mg/dL Microbiology - Last 24 Hours (Table) 03/31/18 14:00 Blood Culture - Preliminary Blood No Growth after 72 hours 04/01/18 13:20 Gram Stain - Final Sputum Sputum Culture - Final Staphylococcus aureus Assessment and Plan Assessment: Assessment: #1. Large saddle pulmonary embolism with pulmonary infarction syndrome and pleuritic chest pain along with a right lower extremity DVT. #2. Recently diagnosed lung mass with significant mediastinal lymphadenopathy on palliative chemotherapy #3. Previous history of laryngectomy for throat cancer 28 years ago #4. History of hypertension #5. Hyperlipidemia #6. GERD #7. History of carotid stents Plan: The patient was seen and evaluated by Dr. Valle. She has been transitioned to Eliquis. This will be required for lifelong anticoagulation based on her history. She is cleared for discharge from the pulmonary standpoint. She will most likely need home oxygen in the form of trach collar. She should follow-up in our office in 1-2 weeks' time. We'll make further recommendations based on her clinical status. I, the cosigning physician, performed a history & physical examination of the patient. Lungs sounds with few scattered rhonchi, crackles in the right posterior base.. Maintaining good O2 saturations in the 90s on trach collar. I discussed the assessment and plan of care with my nurse practitioner, Reva Jasmine. I attest to the above note as dictated by her.
[2018-04-04 16:50] VITALS: PULSE 84
--- NOTE | 2018-04-05 10:44 | P.PN ---
Subjective Progress Note Date: 04/04/18 Principal diagnosis: Laryngeal Carcinoma patient getting ready for discharge during evaluation, feeling better, tolerating anticoagulation Objective - Vital Signs Vital signs: Vital Signs Temp 98.3 F 04/04/18 08:00 Pulse 84 04/04/18 12:00 Resp 16 04/04/18 12:00 BP 145/69 04/04/18 12:00 Pulse Ox 88 L 04/04/18 12:00 Intake & Output 04/03/18 04/04/18 04/04/18 18:59 06:59 18:59 Intake Total 720 100 240 Output Total 700 Balance 20 100 240 Weight 68.2 kg Intake: Intake, IV Titration 260 100 Amount Levofloxacin 750Mg-D5w 100 Pmx 750 mg In Dextrose/ Water 1 150ml.bag @ 100 mls/hr IVPB Q24H [facility] Rx#: [id number] Sodium Chloride 0.9% 1, 160 100 000 ml @ 20 mls/hr IV . Q24H [facility] Rx#:[id number] Oral 460 240 Output: Urine 700 Other: Voiding Method Bedpan Bedpan Bedpan # Voids 1 1 2 - Exam - Constitutional General appearance: Present: average body habitus, cooperative, no acute distress - EENT EENT Comment(s): well healed trach opening in the suprasternal notch Eyes: Present: anicteric sclerae, EOMI - Respiratory Respiratory: bilateral: diminished, rales (few scattered) - Cardiovascular Heart sounds: normal: S1, S2 - Peripheral edema leg Peripheral Edema: bilateral: None - Gastrointestinal General gastrointestinal: Present: normal bowel sounds, soft - Integumentary Integumentary: Present: normal - Neurologic Neurologic: Present: CNII-XII intact - Musculoskeletal Musculoskeletal: Present: strength equal bilaterally - Psychiatric Psychiatric: Present: A&O x's 3, appropriate affect, intact judgment & insight - Labs CBC & Chem 7: 04/04/18 06:28 04/01/18 06:26 Labs: Abnormal Lab Results - Last 24 Hours (Table) 04/03/18 04/03/18 04/04/18 Range/Units 17:00 20:58 06:28 RDW 19.2 H (11.5-15.5) % Lymphocytes # 0.6 L (1.0-4.8) k/uL POC Glucose (mg/dL) 139 H 217 H (75-99) mg/dL 04/04/18 Range/Units 11:10 RDW (11.5-15.5) % Lymphocytes # (1.0-4.8) k/uL POC Glucose (mg/dL) 74 L (75-99) mg/dL Microbiology - Last 24 Hours (Table) 03/31/18 14:00 Blood Culture - Preliminary Blood No Growth after 72 hours 04/01/18 13:20 Gram Stain - Final Sputum Sputum Culture - Final Staphylococcus aureus Assessment and Plan Plan: - Imaging and Cardiology CT scan - chest: report reviewed - reviewed doppler report Assessment and Plan (1) Deep vein thrombosis (DVT) of proximal vein of right lower extremity - Eliquis (2) Saddle embolus of pulmonary artery - Eliquis (3) Non-small cell lung cancer (NSCLC) - Plan to continue treatment with Weekly carboplatin as outpatient after follow -up in office. (4) COPD (chronic obstructive pulmonary disease) Pulmonary and IM mgmt of exacerbation Tolerating Eliquis well, no S/S of bleeding at this time continue at discharge and will follow-up in office to continue currently treatment for carcinoma.
--- NOTE | 2018-04-05 11:09 | P.DS ---
Providers Date of admission: 03/31/18 17:11 Expected date of discharge: 04/04/18 Attending physician: Jean Claude Muller Consults: 03/31/18 17:11 Consult Physician Urgent Consulting Provider: Fredi Valle Consult Reason/Comments: Pulmonary embolism Do you want consulting provider notified?: Already Contacted 04/01/18 09:06 Consult Physician Routine Consulting Provider: Pankaj Hernandez Consult Reason/Comments: [place], pt known to you Do you want consulting provider notified?: Yes Primary care physician: Kamari [facility] Course: 82-year-old female with a past medical history significant for laryngeal cancer status post laryngectomy and lung cancer currently undergoing salvage chemotherapy, who presented to the emergency room with a chief complaint of dyspnea. chest x-ray revealed cardiomegaly and new basilar pulmonary infiltrates compared to old examined consistent with pneumonia. CT of the chest was performed revealing a extensive pulmonary embolism involving the left upper lobe right middle lobe and right lower lobe pulmonary arteries. Large area of airspace consolidation left lower lobe. Small infiltrate right posterior lung base. Laboratory data upon admission revealed white count 9.2. Hemoglobin 12.0. Platelet count 215. Sodium 136. Potassium 3.9. BUN 18. Creatinine 0.69. Glucose 166. Magnesium 1.5. troponin negative 1. BNP 318. d -dimer 28.98. testing for influenza A and B was negative. the patient was started on antibiotics and IV heparin and admitted to the hospital under the care of Dr. Muller. Consultations were placed to pulmonary and oncology. The patient was transitioned from IV heparin to Eliquis. Her copay is $40/month. Sputum culture was positive for staph aureus, thought to be a colonization per pulmonary. She was started on doxycycline. She was prescribed home o2 at the time of discharge. She is stable for discharge home today. ASSESSMENT: Acute pulmonary embolus involving left upper lobe, right middle lobe and right lower lobe pulmonary arteries Right lower extremity DVT Bilateral lobe pneumonia, present on admission, sputum positive for staph aureus , likely colonization per pulmonary History of laryngeal cancer with laryngectomy History of lung cancer, currently undergoing salvage chemotherapy Hypokalemia Hypomagnesemia Nurse practitioner note has been reviewed by physician. Signing provider agrees with the documented findings, assessment, and plan of care. Patient Condition at Discharge: Stable Plan - Discharge Summary Discharge Rx Participant: No New Discharge Prescriptions: New Apixaban [Eliquis] 5 mg PO BID #80 tab Doxycycline [Vibramycin] 100 mg PO BID #18 cap Continue Montelukast [Singulair] 10 mg PO DAILY Bisoprol/Hydrochlorothiazide [Bisoprolol-Hctz 10-6.25 mg Tab] 1 tab PO DAILY Omeprazole 20 mg PO DAILY Lovastatin [Mevacor] 20 tab PO DAILY Melatonin 10 mg PO HS Multivitamins, Thera [Multivitamin (formulary)] 1 tab PO DAILY Cholecalciferol [Vitamin D3] 5,000 unit PO DAILY Calcium 2,000 mg PO DAILY Ascorbic Acid [Vitamin C] 1,000 mg PO DAILY Albuterol Inhaler [Ventolin Hfa Inhaler] 1 - 2 puff INHALATION RT-Q6H PRN PRN Reason: Shortness Of Breath amLODIPine [Norvasc] 5 mg PO DAILY Hfb Nasal [place] 1 spray DAILY Discharge Medication List Bisoprol/Hydrochlorothiazide [Bisoprolol-Hctz 10-6.25 mg Tab] 1 tab PO DAILY [History] Lovastatin [Mevacor] 20 tab PO DAILY 12/25/17 [History] Montelukast [Singulair] 10 mg PO DAILY 12/25/17 [History] Omeprazole 20 mg PO DAILY 12/25/17 [History] Albuterol Inhaler [Ventolin Hfa Inhaler] 1 - 2 puff INHALATION RT-Q6H PRN [History] Ascorbic Acid [Vitamin C] 1,000 mg PO DAILY 03/31/18 [History] Calcium 2,000 mg PO DAILY 03/31/18 [History] Cholecalciferol [Vitamin D3] 5,000 unit PO DAILY 03/31/18 [History] Hfb Nasal [place] 1 spray DAILY 03/31/18 [History] Melatonin 10 mg PO HS 03/31/18 [History] Multivitamins, Thera [Multivitamin (formulary)] 1 tab PO DAILY 03/31/18 [History ] amLODIPine [Norvasc] 5 mg PO DAILY 03/31/18 [History] Apixaban [Eliquis] 5 mg PO BID #80 tab 04/03/18 [Rx] Doxycycline [Vibramycin] 100 mg PO BID #18 cap 04/04/18 [Rx] Follow up Appointment(s)/Referral(s): Fredi Valle DO [Doctor of Osteopathic Medicine] - 1 Week Kamari Bailey MD [Primary Care Provider] - 1 Week Pankaj Hernandez MD [STAFF PHYSICIAN] - 04/11/18 10:30 am (THIS IS A CHEMO APPT. PT WILL BE EVALUATED WHEN SEEN) Patient Instructions/Handouts: Pulmonary Embolism (DC), Safe Use of Anticoagulants (DC) Activity/Diet/Wound Care/Special Instructions: Pts monthly copay for eliquis or xarelto is $40 ERX SENT FOR ELIQUIS TO [facility] (Harish LUIS NP). PT NEEDS TO COMPLETE 7 DAYS LOADING DOSE OF ELIQUIS (10mg PO BID) THEN, 5mg PO BID. Please obtain rx for home oxygen from pulmonary Discharge Disposition: HOME SELF-CARE
== END 2018-04-04 18:00 | disposition home or self-care (01) | DRG 175 ==
LOC: EC 12:47 → 2SICU 17:11 → 3SCARD 20:06
PROVIDERS: ADMIT Family Medicine; ATTEND Family Medicine
DX: I26.92 Saddle embolus of pulmonary artery without acute cor pulmonale (principal); J18.9 Pneumonia, unspecified organism; I82.4Y1 Acute embolism and thrombosis of unspecified deep veins of right proximal lower extremity; J44.0 Chronic obstructive pulmonary disease with (acute) lower respiratory infection; J44.1 Chronic obstructive pulmonary disease with (acute) exacerbation; C34.92 Malignant neoplasm of unspecified part of left bronchus or lung; C32.9 Malignant neoplasm of larynx, unspecified; E78.5 Hyperlipidemia, unspecified; E83.42 Hypomagnesemia; E87.6 Hypokalemia; I11.9 Hypertensive heart disease without heart failure; K21.9 Gastro-esophageal reflux disease without esophagitis; R09.02 Hypoxemia; Z79.899 Other long term (current) drug therapy; Z80.0 Family history of malignant neoplasm of digestive organs; Z82.49 Family history of ischemic heart disease and other diseases of the circulatory system; Z83.3 Family history of diabetes mellitus; Z85.819 Personal history of malignant neoplasm of unspecified site of lip, oral cavity, and pharynx; Z87.891 Personal history of nicotine dependence; Z90.02 Acquired absence of larynx; Z90.710 Acquired absence of both cervix and uterus; Z92.3 Personal history of irradiation; Z79.51 Long term (current) use of inhaled steroids; Z88.0 Allergy status to penicillin; Z88.2 Allergy status to sulfonamides
CPT/HCPCS: 36415; 71045; 71275; 80053; 81003; 82550; 82553; 83605; 83735; 83880; 84484; 85025; 85379; 85610; 85730; 87040; 87070; 87077; 87186; 87205; 87502; 93005; 93970; 94640; 94760; 96361; 96365; 96366; 96368; 96375; 96376; 99291

== ENCOUNTER → 2018-05-17 | Outpatient (CLI) | payer MEDICARE ==
[2018-05-17 13:47] LABS: Blood Urea Nitrogen 14 mg/dL (7-17)
--- NOTE | 2018-05-17 14:33 | MR ---
EXAMINATION TYPE: MR brain wo/w con DATE OF EXAM: 05/17/2018 COMPARISON: CT brain September 06, 2012 HISTORY: Dizziness, confusion, lung ca TECHNIQUE: Multiplanar, multisequence images of the brain and brainstem is performed without and with IV contras t, utilizing 7 mL intravenous Gadavist . FINDINGS: Diffusion weighted images demonstrate no evidence of a recent infarct or other diffusion ab normality. There is no worrisome extra-axial fluid collection. There is ventricular and sulcal promi nence consistent with mild to moderate diffuse cerebral atrophy. There are multifocal areas of T2 hyp erintensity seen throughout the white matter bilaterally most prominent at the deep and periventricul ar levels. Lesions are nonspecific in appearance and distribution but most likely on basis of product of chronic small vessel ischemic change. Midline structures demonstrate normal morphology. The craniocervical junction appears within normal limits. Post contrast images demonstrate no abnormal enhancement. The dural venous sinuses appear pa tent. Some dependent fluid left sphenoid sinus axial image 9 is noted. The visualized sinuses are oth erwise clear and the globes are intact. Increased fluid signal left mastoid air cells is more promine nt from 2013 CT. IMPRESSION: 1. There is mild to moderate diffuse cerebral atrophy and felt moderate chronic small vessel ischemic change identified. 2. No suspicious enhancing intraparenchymal mass is present to suggest metastatic disease to the brai n. 3. Possible left-sided acute mastoiditis and acute left-sided sphenoid sinusitis, correlate clinicall y.
--- NOTE | 2018-05-17 15:40 | CT ---
EXAMINATION TYPE: CT chest w con DATE OF EXAM: 05/17/2018 COMPARISON: CTA chest March 31, [address] PET CT December 22, 2017 HISTORY: f/u lung ca currently on chemotherapy diagnosed in 2018 CT DLP: 486 mGycm. Automated Exposure Control for Dose Reduction was Utilized. TECHNIQUE: CT scan of the thorax is performed following with IV Contrast, patient injected with 80 m L of Isovue 300. FINDINGS: LUNGS: There is persistent posterior left mid lung heterogeneous mass beginning at hilar level measur ing approximately 6.9 x 7.3 cm transversely axial image 28 not significantly changed from most recent CT or from prior PET/CT. There are persistent left hilar calcified nodules redemonstrated anterior t o this. There is stable calcified 8 mm nodule or granuloma lateral left mid lung. There is improved p osterior inferior obstructive atelectasis on current study. Craniocaudal dimension of tumor is roughl y 7.4 cm coronal image 52 versus 7.8 cm prior study image 125. There is new suspicious 10 x 7 mm nod ule in the left lung base laterally axial image 38 that can be followed. There is background mild emp hysematous change. There is dependent atelectasis in the right lower lobe. There is persistent linear slightly more nodular scarring in the right middle lobe abutting the diaphragm. MEDIASTINUM: There are no greater than 1 cm noncalcified hilar or mediastinal lymph nodes on current study. There is interval improvement in enlarged hypermetabolic prevascular and subcarinal noncalcifi ed lymph nodes versus prior PET/CT. There is redemonstration of calcified AP window, paratracheal, p ericarinal, and subcarinal lymph nodes. No pericardial effusion is seen. Stable mild cardiomegaly is present. Coronary artery callus occasions redemonstrated which is noted marker for coronary artery d isease. Recently known pulmonary emboli on recent CTA chest are less well seen on this study perhaps treatment related or due to change in technique. OTHER: There are simple appearing 2.8 cm cyst upper pole level left kidney axial image 53. There is m ild to moderate multilevel spurring in the visualized spine. IMPRESSION: 1. Posterior left mid lung mass or neoplasm appears stable or not significantly changed from PET/CT a nd most recent CT. Improved thoracic adenopathy noted from PET/CT. Possible new lateral left basilar 10 x 7 mm pulmonary nodule. Improved obstructive atelectatic change from most recent chest CT. Findings consistent with overall mixed response.
== END | disposition home or self-care (01) ==
LOC: RADMRIMAIN 13:04
PROVIDERS: ATTEND Internal Medicine Hematology & Oncology
DX: G31.9 Degenerative disease of nervous system, unspecified (principal); C34.32 Malignant neoplasm of lower lobe, left bronchus or lung; R59.0 Localized enlarged lymph nodes; J98.11 Atelectasis; Z88.0 Allergy status to penicillin; Z88.2 Allergy status to sulfonamides; Z88.8 Allergy status to other drugs, medicaments and biological substances
CPT/HCPCS: 82565; 84520; 71260; 70553; 36415; A9585; Q9967

== ENCOUNTER → 2018-07-12 | Outpatient (CLI) | payer MEDICARE ==
--- NOTE | 2018-07-12 13:02 | US ---
EXAMINATION TYPE: US venous doppler duplex UE LT DATE OF EXAM: 07/12/2018 COMPARISON: NONE CLINICAL HISTORY: M79.622 left upper arm. Left arm pain, patient on blood thinners SIDE PERFORMED: Left Grayscale, color doppler, spectral doppler imaging performed of the deep veins of the left upper extr emity. Visualized portions of the left internal jugular vein, subclavian vein, axillary vein, brachial veins all compress normally. No abnormal luminal echoes. Venous waveforms are normal. Radial and ulnar vei ns are normal cephalic and basilic veins unremarkable. Left Arm: Appears negative for DVT There is normal flow, compressibility and vascular waveforms. IMPRESSION: No evident deep venous thrombosis in the left upper extremity.
== END | disposition home or self-care (01) ==
LOC: RADUSWWP 11:58
PROVIDERS: ATTEND Internal Medicine Hematology & Oncology
DX: M79.662 Pain in left lower leg (principal)

== ENCOUNTER → 2018-07-29 | Outpatient (CLI) | payer MEDICARE ==
[2018-07-29 06:57] LABS: Blood Urea Nitrogen 10 mg/dL (7-17)
--- NOTE | 2018-07-29 08:24 | CT ---
EXAMINATION TYPE: CT chest w con DATE OF EXAM: 07/29/2018 COMPARISON: May 17, 2018 HISTORY: Lung cancer, observe for mets CT DLP: 364 mGycm Automated exposure control for dose reduction was used. CONTRAST: CT scan of the chest is performed with IV Contrast, patient injected with 100 ml mL of Isovue 300. FINDINGS: LUNGS: Left hilar mass with associated volume loss persists and appears to be essentially unchanged. Area of mass measures 7.9 x 7.1 cm. Versus 7.3 x 6.9 cm. Scattered pulmonary nodules are noted throug hout both lung suarez which have increased at the left lung base. For example a nodule currently mahi ures 1.3 cm versus 9.6 mm previously. There are a few scattered pulmonary nodules noted as well. Scat tered right-sided pulmonary nodules have increased in size for example pleural-based right lower lobe pulmonary nodule measures 8.1 mm versus 5.3 mm previously. MEDIASTINUM: There are no greater than 1 cm hilar or mediastinal lymph nodes. No pericardial effus ion is seen. Thoracic aorta is of normal caliber. The heart is not enlarged. Calcified hilar mediast inal lymph nodes. UPPER ABDOMEN: Calcified granulomas spleen. Simple cyst left kidney. OTHER: No additional significant abnormality is seen. IMPRESSION: 1. Persistent left hilar mass with associated volume loss appears slightly larger in size. 2. Satellite pulmonary nodules left lower lobe appear to have increased in size and overall number an d are too numerous to count. Scattered pulmonary nodules within the right lung also appear to have in creased in size and overall number.
== END | disposition home or self-care (01) ==
LOC: RADCTMAIN 06:23
PROVIDERS: ATTEND Internal Medicine Hematology & Oncology
DX: Z03.89 Encounter for observation for other suspected diseases and conditions ruled out (principal); C34.32 Malignant neoplasm of lower lobe, left bronchus or lung; R91.8 Other nonspecific abnormal finding of lung field; Z88.0 Allergy status to penicillin; Z88.2 Allergy status to sulfonamides
CPT/HCPCS: 82565; 84520; 71260; 36415; Q9967

== ENCOUNTER → 2018-08-09 | Outpatient (CLI) | payer MEDICARE ==
--- NOTE | 2018-08-09 18:51 | PE ---
EXAMINATION TYPE: PET CT fusion skull to thigh DATE OF EXAM: 08/09/2018 COMPARISON: Prior PET/CT December 22, 2017. Most recent chest CT July 29, 2018 and older studies. HISTORY: Left-sided lung cancer. History of radiation treatment and surgery 1989 for throat cancer. TECHNIQUE: Following the intravenous administration of 13.935 mCi of F-18 FDG, whole body images are performed from the skull base to the midthigh. Images are reviewed on the computer in the coronal, axial, and sagittal planes. Reconstructed rotating images are created on independent workstation and reviewed on the computer. A noncontrast CT is performed in conjunction with the PET scan. SCAN: Subsequent Scan FINDINGS: SKULL BASE AND NECK: No areas of new suspicious hypermetabolic uptake. CHEST, MEDIASTINUM, AND HILAR REGION: There is persistent area of masslike consolidation left hilar l evel posteriorly with abnormal hypermetabolic uptake measuring approximately 8.4 x 8.3 cm axial image 101 there is some calcified left hilar lymph nodes, max SUV is 9.821 current study. There is interval improvement in hypermetabolic thoracic lymph nodes without enlarged hypermetabolic noncalcified lymph nodes seen on current study. Calcified thoracic lymph nodes including left hilar r egion are redemonstrated. There are calcified left nodules or granulomas again seen. No new areas of abnormal hypermetabolic uptake are present. There are however new suspicious left lower lung nodules without hypermetabolic uptake, for reference a 1.0 cm nodule is noted lateral left lung base axial im age 89. ABDOMEN AND PELVIS: No new areas of abnormal hypermetabolic uptake. OSSEOUS STRUCTURES: No new areas of abnormal hypermetabolic uptake. 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 Coronary artery calcification is again seen which is noted marked for underlying coronary artery dise ase. Some calculation scattered throughout the spleen are redemonstrated. There is simple appearing 2.5 cm cyst upper pole level left kidney redemonstrated. There is moderate calcified plaque and ectatic abd ominal aorta redemonstrated. Greater than 3 cm aneurysmal change. Diverticula scattered throughout th e colon most prominent left and sigmoid colon is redemonstrated. Osseous structures are demineralized. There is multilevel spurring in the spine. Facet arthropathy in the mid to lower lumbar spine. IMPRESSION: Posterior left mid lung mass or neoplasm extending from hilar region shows no significant interval change. There is however interval improvement in thoracic adenopathy. I suspect patient is actively undergoing chemotherapy with positive response. There are however new suspicious but ametabo lic left basilar nodules which need to be followed as overall mixed response to BE considered otherwi se no new metastatic lesions are present.
== END | disposition home or self-care (01) ==
LOC: RADPETMAIN 11:10
PROVIDERS: ATTEND Internal Medicine Hematology & Oncology
DX: R59.0 Localized enlarged lymph nodes (principal); C34.32 Malignant neoplasm of lower lobe, left bronchus or lung
CPT/HCPCS: 78815; A9552

== ENCOUNTER → 2019-01-03 | Outpatient (CLI) | payer MEDICARE ==
--- NOTE | 2019-01-07 08:28 | PE ---
EXAMINATION TYPE: PET CT fusion skull to thigh DATE OF EXAM: 01/03/2019 COMPARISON: Prior PET/CT August 09, 2018 and older studies. HISTORY: Lung cancer progress study. Originally diagnosed left lung in 2018 currently undergoing ac tive chemotherapy. History of remote throat cancer. TECHNIQUE: Following the intravenous administration of 10.1 mCi of F-18 FDG, whole body images are p erformed from the skull base to the midthigh. Images are reviewed on the computer in the coronal, ax ial, and sagittal planes. Reconstructed rotating images are created on independent workstation and r eviewed on the computer. A noncontrast CT is performed in conjunction with the PET scan. SCAN: Subsequent Scan FINDINGS: SKULL BASE AND NECK: No new areas of suspicious hypermetabolic uptake. CHEST, MEDIASTINUM, AND HILAR REGION: There is persistent area of masslike consolidation left hilar l evel posteriorly measuring approximately 8.0 x 7.5 cm axial image 93 with areas of hypermetabolic upt joey. Max SUV is is felt diminished from prior. Overall size of lesion not significantly changed. Mark tional areas of masslike consolidation inferior to this with patchy areas of hypermetabolic uptake ar e more prominent on current study for reference near axial image 117. In addition there are scattered new pulmonary nodules bilaterally felt to reflect disease progression. Majority are subcentimeter in size. For reference new 9 x 5 mm subpleural left upper lobe nodule axial image 76. There are enlarging thoracic lymph nodes. For reference there is new 1.3 x 1.1 cm right paracarinal l ymph node image 83. There is new hypermetabolic subcarinal 1.5 x 1.4 cm lymph node axial image 98. ABDOMEN AND PELVIS: No new areas of abnormal hypermetabolic uptake. OSSEOUS STRUCTURES: No new areas of abnormal hypermetabolic uptake. 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 Coronary artery calcification is again seen which is noted marked for underlying coronary artery dise ase. Some calcifications scattered throughout the spleen are redemonstrated. There is simple appearing 2.5 cm cyst exophytically upper pole level left kidney redemonstrated. There is moderate calcified plaqu e and ectatic abdominal aorta redemonstrated. No greater than 3 cm aneurysmal change. Diverticula scattered throughout the colon most prominent left and sigmoid colon is redemonstrated. O sseous structures are demineralized. There is multilevel spurring in the spine. Facet arthropathy is redemonstrated in the mid to lower lumbar spine. IMPRESSION: Overall mixed response with some improvement in max SUV in the large left hilar mass or n eoplasm extending posteriorly. Size is fairly stable. There is however worsening or recurrent thoraci c adenopathy. There is marked progression in bilateral pulmonary nodules also noted. Addendum will be issued with SUV values in 1 days time.
== END | disposition home or self-care (01) ==
LOC: RADPETMAIN 10:13
PROVIDERS: ATTEND Internal Medicine Hematology & Oncology
DX: C34.32 Malignant neoplasm of lower lobe, left bronchus or lung (principal)
CPT/HCPCS: 78815; A9552